=== PATIENT | male | born 1935 | race Caucasian/White ===

== ENCOUNTER → 2016-02-22 | Outpatient (REF) | payer MEDICARE, OTHER | LOC: M LAB REF 17:17 | PROVIDERS: ATTEND Internal Medicine Nephrology | DX: N17.9 Acute kidney failure, unspecified (principal); D72.829 Elevated white blood cell count, unspecified ==

== ENCOUNTER 2016-02-29 08:13 | Outpatient (CLI) | payer MEDICARE, OTHER ==
[~2016-02-29] VITALS: Ht 177.8 cm; Wt 141.4 kg
[2016-02-29] MEDS ORDERED: IRON SUCROSE 25 MG in NS 50 ML IV ONE (08:30)
[2016-02-29] MEDS ORDERED: IRON SUCROSE 475 MG in NS 250 ML IV ONE (09:30)
[2016-02-29] MEDS ORDERED: TRAZ50TA4 PO (09:58)
[2016-02-29] MEDS ORDERED: PARO10TA84 PO (09:59)
[2016-02-29] MEDS ORDERED: ZYLO300T4 PO (10:00)
[2016-02-29] MEDS ORDERED: AMLO5TAB2 PO (10:06)
[2016-02-29] MEDS ORDERED: PROS5TAB PO (16:23)
[2016-02-29] MEDS ORDERED: IRON1TAB PO (16:24)
[2016-02-29] MEDS ORDERED: TORS10TA3 PO (16:24)
[2016-02-29] MEDS ORDERED: ATOR1TAB19 PO (16:25)
[2016-02-29] MEDS ORDERED: ISOS30TAB PO (16:26)
[2016-02-29] MEDS ORDERED: METO5TA PO (16:26)
[2016-02-29] MEDS ORDERED: ASPI81TA85 PO (16:27)
[2016-02-29] MEDS ORDERED: STOO240C PO (16:28)
[2016-02-29] MEDS ORDERED: CARV12.5 PO (16:28)
[2016-02-29] MEDS ORDERED: K-TA10TA2 PO (16:28)
[2016-02-29] MEDS ORDERED: HUMA75VL SC (16:30)
[2016-02-29] MEDS ORDERED: GABA-279 PO (16:30)
[2016-02-29] MEDS ORDERED: ADVI200C5 PO (16:30)
[2016-02-29] MEDS ORDERED: COLC1TAB5 PO (16:33)
[2016-02-29] MEDS ORDERED: HUMA75VLDS SC (16:33)
== END 2016-02-29 13:00 | disposition home or self-care (01) ==
LOC: M INFU 08:13
PROVIDERS: ATTEND Internal Medicine Nephrology
DX: D50.9 Iron deficiency anemia, unspecified (principal); I10 Essential (primary) hypertension; R06.83 Snoring; G47.30 Sleep apnea, unspecified; E11.9 Type 2 diabetes mellitus without complications; M54.9 Dorsalgia, unspecified; R53.1 Weakness; Z79.4 Long term (current) use of insulin; Z87.891 Personal history of nicotine dependence; Z79.899 Other long term (current) drug therapy
CPT/HCPCS: 96365; 96366; J1756

== ENCOUNTER → 2016-06-05 | Outpatient (REF) | payer MEDICARE, OTHER ==
[~2016-06-05] MED LIST: ADVI200C5 PO; AMLO5TAB2 PO; ASPI81TA85 PO; ATOR1TAB19 PO; CARV12.5 PO; COLC1TAB5 PO; GABA-279 PO; HUMA75VL SC; HUMA75VLDS SC; IRON1TAB PO; ISOS30TAB PO; K-TA10TA2 PO; METO5TA PO; PARO10TA84 PO; PROS5TAB PO; STOO240C PO; TORS10TA3 PO; TRAZ50TA4 PO; ZYLO300T4 PO
[2016-06-05 19:32] LABS: REASON FOR REVIEW COMPREHENSIVE REVIEW
[2016-06-05 20:43] LABS: ERYTHROCYTE SEDIMENTATION RATE 48 mm/hr (0-20)
== END ==
LOC: M LAB REF 16:34
PROVIDERS: ATTEND Internal Medicine Medical Oncology
DX: D72.829 Elevated white blood cell count, unspecified (principal)

== ENCOUNTER → 2017-03-16 | Outpatient (REF) | payer MEDICARE, OTHER ==
[2017-03-16 14:07] LABS: FERRITIN 96 NG/ML (26-388); IRON (FE) 43 UG/DL (65-175); PERCENT SATURATION 15.5 % (19.7-50.0); TOTAL IRON BINDING CAPACITY 278 UG/DL (250-450)
[2017-03-16 14:28] LABS: FOLATE 10.2 NG/ML; VITAMIN B12 LEVEL 386 PG/ML
== END ==
LOC: M LAB REF 13:09
DX: D64.9 Anemia, unspecified (principal)
CPT/HCPCS: 82746

== ENCOUNTER → 2018-08-16 | Outpatient (REF) | payer MEDICARE ==
[~2018-08-16] MED LIST changes: -AMLO5TAB2 PO; +AMLO5TAB6 PO; +COLC1TAB14 PO; -COLC1TAB5 PO; +GABA-1171 PO; -GABA-279 PO; +PARO10TA3 PO; -PARO10TA84 PO; +STOO1CAP9 PO; -STOO240C PO; +TRAZ-252 PO; -TRAZ50TA4 PO; -ZYLO300T4 PO; +ZYLO300T6 PO
== END ==
LOC: M LAB REF 16:53
PROVIDERS: ATTEND Internal Medicine Nephrology
DX: N39.0 Urinary tract infection, site not specified (principal)

== ENCOUNTER 2019-06-29 11:47 | Inpatient (IN) | payer MEDICARE ==
[2019-06-29 15:15] VITALS: BP 137/61
[2019-06-29] MEDS ORDERED: MAALOX 30 ML SUSP *UDC PO PRN (15:45)
[2019-06-29] MEDS ORDERED: DEXTROSE 50% 50 ML SYRINGE IV PRN (15:45)
[2019-06-29] MEDS ORDERED: GLUCOSE 4GM CHEW TABLET PO PRN (15:45)
[2019-06-29] MEDS ORDERED: MOM 30ML SUSPENSION UDC PO PRN (15:45)
[2019-06-29] MEDS ORDERED: ACETAMINOPHEN TAB 650MG DOSE (2X325MG) PO PRN (15:45)
[2019-06-29] MEDS ORDERED: GLUCAGON INJ 1MG VIAL SC PRN (15:45)
--- NOTE | 2019-06-29 16:20 | HPEPDOC ---
[facility] Medical History & Physical Date of Admission June 29, 2019 Date of Service: June 29, [address] MIGUELINA GARVIN Attending Physician: LUZ VALENZUELA MD History and Physical CHIEF COMPLAINT: HISTORY OF PRESENT ILLNESS: PAST MEDICAL HISTORY: 1. . 2. . 3. . PAST SURGICAL HISTORY: 1. . 2. . 3. . SOCIAL HISTORY: Marital status: . Resides in: Children: Employment: Tobacco use: ETOH: Illicit drug use: Tattoos done unprofessionally: . IV drug use: Other relevant social factors: FAMILY HISTORY: Father: Mother: Siblings: Children: Hereditary Diseases: Unexpected deaths due to medical reasons: ALLERGIES: Please see below. REVIEW OF SYSTEMS: CONSTITUTIONAL: . HEENT: . CARDIOVASCULAR: . RESPIRATORY: . GASTROINTESTINAL: . GENITOURINARY: . SKIN: . MUSCULOSKELETAL: . NEUROLOGICAL: . PSYCHIATRIC: . ENDOCRINE: . HEMATOLOGIC/LYMPHATIC: . HOME MEDICATIONS: Please see below. PHYSICAL EXAMINATION: VITAL SIGNS: Temperature , pulse , respiratory rate , blood pressure , pulse oximetry % on room air. GENERAL APPEARANCE: . HEENT: . CARDIOVASCULAR: . LUNGS: . ABDOMEN: . MUSCULOSKELETAL: . EXTREMITIES: . NEUROLOGICAL: . PSYCHIATRIC: . LABORATORY DATA: See below. IMAGING: MICROBIOLOGY: Please see below. ASSESSMENT: . . PLAN: 1. . Vital Signs Vital Signs Date Time Temp Pulse Resp B/P (MAP) Pulse Ox O2 Delivery O2 Flow Rate FiO2 06/29/19 15:15 96.9 75 18 137/61 (86) 95 Room Air Laboratory Data Labs 24H Laboratory Tests 06/29/19 16:25 Microbiology Microbiology 06/29/19 Blood Culture, Received Pending 06/29/19 Blood Culture, Received Pending Home Medications Scheduled Allopurinol (Zyloprim) 300 Mg Tab, 300 MG PO DAILY Amlodipine Besylate (Amlodipine Besylate) 5 Mg Tab, 5 MG PO DAILY Aspirin (Aspir 81) 81 Mg Tab, 81 MG PO DAILY Atorvastatin Calcium (Atorvastatin Calcium) 10 Mg Tab, 10 MG PO DAILY Betamethasone Dipropionate (Betamethasone Dipropionate) 0.05% Cream..g., 1 APLCT TOP BID apply to affected area(s) Carvedilol (Carvedilol) 6.25 Mg Tablet, 6.25 MG PO BID Clotrimazole (Lotrimin AF) 30 Gm Cream..g., 1 APLCT TOP TID apply to inguinal regions Docusate Sodium (Dok) 100 Mg Tablet, 100 MG PO BID Ferrous Sulfate (Ferrous Sulfate) 325 Mg Tablet.dr, 325 MG PO DAILY Finasteride (Proscar) 5 Mg Tab, 5 MG PO DAILY Gabapentin (Gabapentin) 100 Mg Cap, 200 MG PO DAILY Insulin Detemir (Levemir) 100 Unit/1 Ml Vial, 100 UNITS SC BID Metolazone (Metolazone) 5 Mg Tab, 5 MG PO ASDIRECTED sunday and sunday Paroxetine HCl (Paroxetine) 10 Mg Tab, 10 MG PO DAILY Potassium Chloride (Potassium Chloride) 20 Meq Tablet.er, 20 MEQ PO DAILY Sulfamethoxazole/Trimethoprim (Bactrim Ds Tablet) 1 Each Tablet, 1 TAB PO BID started 06/28/19 stop 06/30/19 Torsemide (Torsemide) 10 Mg Tab, 20 MG PO DAILY Trazodone HCl (Trazodone HCl) 50 Mg Tab, 50 MG PO QHS Scheduled PRN Hydrocodone/Acetaminophen (Hydrocodone-Acetamin 5-325 mg) 1 Each Tablet, 1 TAB PO Q6H PRN for PAIN started 06/28/19 stop 07/04/19 Allergies Coded Allergies: No Known Allergies (Verified , 08/11/02) A-FIB/CHADSVASC A-FIB History Current/History of A-Fib/PAF?: No Current PO Anticoag Therapy: No Age/Risk Factor Scoring CHADSVASC: CHADSVASC Response (Comments) Value Age Risk Factor Age >/= 75 years old 2 Gender Risk Factor Male 0 Hx of CHF No 0 Hx of HTN Yes 1 Hx of Stroke/TIA/or VTE No 0 Hx of Diabetes Yes 1 Hx of Vascular Disease No 0 Total 4 Treatment Treatment ordered: NONE Reason Anticoagulant not given: Not indicated/[id number] Objective Physical Examination Examination GENERAL APPEARANCE:[Patient seen, laying in bed, awake, alert, and oriented. Comfortable, in no acute distress]. SKIN: [Warm and moist]. HEENT: [Normocephalic, atraumatic. [place] palpebral conjunctiva, anicteric sclerae. Lips and mucosa appear moist]. NECK: [Supple, no thyromegaly. No obvious jugular venous distention]. LUNGS: [Clear to auscultation bilaterally. No wheezing appreciated]. HEART: [No chest wall abnormalities. Regular rate and rhythm with no murmurs appreciated]. ABDOMEN: Abdomen is , soft, . [No hepatosplenomegaly. No umbilical or groin herniations, nondistended. No noticeable rebound or guarding. No grimacing with palpation. No rebound tenderness. No masses appreciated]. EXTREMITIES: [Extremities have no deformities. No edema identified]. Vital Signs Vital Signs Date Time Temp Pulse Resp B/P (MAP) Pulse Ox O2 Delivery O2 Flow Rate FiO2 06/29/19 15:15 96.9 75 18 137/61 (86) 95 Room Air Physical Examination Physical Examination GENERAL: Alert and oriented times three. BREAST: . ABDOMEN: Gravid and non-tender to touch. FETUS: Is vertex (VTX) by sterile vaginal examination (SVE), fetus is vertex (VTX) by [place]. HEART RATE: Regular rate and rhythm. LUNGS: Clear to auscultation (CTA). EXTREMITIES: No edema. No clonus. Deep tendon reflexes (DTRs) + . Vital Signs/I&O Vital Signs Date Time Temp Pulse Resp B/P (MAP) Pulse Ox O2 Delivery O2 Flow Rate FiO2 06/29/19 15:15 96.9 75 18 137/61 (86) 95 Room Air Target Goal Assess presence or absence of depression using a valid screening tool (1). Maximize coping skills (2). Positive support system (2). Subjective General Date/Time Seen The patient was seen on 06/29/19 at 16:20. Subject Chief Complaint/History The patient is a 84-year-old male admitted with a reason for visit of Acute Kidney Injury & Chronic Kidney Disease. Current Medications Current Medications Current Medications Medications (Trade) Dose Ordered Sig/Estrella Route PRN Reason Start Time Stop Time Status Last Admin Dose Admin Acetaminophen (Tylenol Tab) 650 mg Q4H PRN PO PAIN OR FEVER 06/29/19 15:45 UNV Al Hydrox/Mg Hydrox/Simethicone (Mylanta) 30 ml DAILY PRN PO DYSPEPSIA 06/29/19 15:45 UNV Dextrose (Dextrose 50%) 25 ml ASDIRECTED PRN IV SEE LABEL COMMENTS 06/29/19 15:45 UNV Docusate Sodium (Colace) 100 mg BID PO 06/29/19 21:00 UNV Glucagon (Glucagon) 1 mg ASDIRECTED PRN SC SEE LABEL COMMENTS 06/29/19 15:45 UNV Glucose (Glucose) 16 GM ASDIRECTED PRN PO SEE LABEL COMMENTS 06/29/19 15:45 UNV Insulin Human Lispro (HumaLOG INSULIN) See Protocol Table AC SC 06/29/19 17:30 UNV Insulin Human Lispro (HumaLOG INSULIN) See Protocol Table QHS SC 06/29/19 21:00 UNV Magnesium Hydroxide (Milk Of Magnesia) 30 ml DAILY PRN PO CONSTIPATION 06/29/19 15:45 UNV VS, I&O, 24H, Fishbone Vital Signs/I&O GI RAMIREZ June 29, 2019 16:20
[2019-06-29 16:37] LABS: BASO # 0.1 10^3/uL (0.0-0.2); BASO % 0.3 % (0.0-1.0); EOS # 1.3 10^3/uL (0.0-0.5); EOS % 6.5 % (0.0-3.0); HEMOGLOBIN 11.1 g/dl (13.5-17.5); LYMPH # 1.8 10^3/uL (1.5-5.0); LYMPH % 8.6 % (24.0-44.0); MEAN CORPUSCULAR HEMOGLOBIN 30.2 pg (27.0-33.0); MEAN CORPUSCULAR HGB CONC 31.7 g/dl (32.0-36.5); MEAN CORPUSCULAR VOLUME 95.4 fl (80.0-96.0); MONO % 4.7 % (0.0-5.0); NEUTROPHILS # 16.3 10^3/uL (1.5-8.5); PLATELET COUNT, AUTOMATED 163 10^3/uL (150-450); RED BLOOD COUNT 3.67 10^6/uL (4.30-6.10); WHITE BLOOD COUNT 20.6 10^3/uL (4.0-10.0)
[2019-06-29 16:47] LABS: INR 1.15; PROTHROMBIN TIME 14.4 SECONDS (11.8-14.0)
--- NOTE | 2019-06-29 17:01 | ECGEPIP ---
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
[2019-06-29 17:08] LABS: ALBUMIN 2.3 GM/DL (3.2-5.2); BILIRUBIN,TOTAL 0.2 MG/DL (0.2-1.0); CALCIUM LEVEL 7.7 MG/DL (8.8-10.2); CREATININE FOR GFR 3.56 MG/DL (0.70-1.30); GLOMERULAR FILTRATION RATE 17.6 (>35); POTASSIUM SERUM 4.9 MEQ/L (3.5-5.1); TOTAL PROTEIN 5.3 GM/DL (6.4-8.2)
[2019-06-29] MEDS ORDERED: FLEET ENEMA PR PRN (17:30)
[2019-06-29] MEDS ORDERED: COLCHICINE 0.6 MG TAB PO SCH (17:30)
[2019-06-29] MEDS ORDERED: MORPHINE 2 MG/ML 1ML VIAL (J2270) IV ONE (17:30)
--- NOTE | 2019-06-29 18:03 | REPVR ---
PROCEDURE INFORMATION: Exam: CT Right Lower Extremity Without Contrast, Hip Exam date and time: 06/29/2019 5:50 PM Age: 84 years old Clinical indication: Pain; Hip; Right; Additional info: R hip pain TECHNIQUE: Imaging protocol: CT of the Right lower extremity without contrast was performed. Exam focused on the hip. Radiation optimization: All CT scans at this facility use at least one of these dose optimization techniques: automated exposure control; mA and/or kV adjustment per patient size (includes targeted exams where dose is matched to clinical indication); or iterative reconstruction. COMPARISON: No relevant prior studies available. FINDINGS: Acute impacted but essentially nondisplaced transverse subcapital right femur neck fracture with varus and apex anterior angulation. Underlying skeletal demineralization. No apparent osseous lesion. No involvement of the greater or lesser trochanter. No articular surface involvement of the femoral head Acetabulum demonstrates no acute fracture. Right obturator ring, right SI joint and symphysis appear appropriately aligned. Mild age-appropriate right hip joint loss and degenerative osteophytes No large soft tissue hematoma or evidence of an open injury. IMPRESSION: Acute transverse subcapital right femur neck fracture with mild varus and apex anterior angulation but minimal displacement. Electronically signed by: Ramon Buchanan On 06/29/2019 18:02:50 PM
[2019-06-29] MEDS: HumaLOG INSULIN (NovoLOG) PER UNIT SC SCH ×2 (18:06→20:32)
[2019-06-29] MEDS: NS 1,000 ML IV SCH (18:07)
[2019-06-29] MEDS ORDERED: CARV6.25 PO (18:31)
[2019-06-29] MEDS ORDERED: POTA1TAB14 PO (18:31)
[2019-06-29] MEDS ORDERED: BACT800T5 PO (18:31)
[2019-06-29] MEDS ORDERED: INSUDET SC (18:31)
[2019-06-29] MEDS ORDERED: HYDR-3713 PO (18:31)
[2019-06-29] MEDS ORDERED: DOK100TA PO (18:31)
[2019-06-29] MEDS ORDERED: FERR325T3 PO (18:34)
[2019-06-29] MEDS ORDERED: BETA0.0543 TOP (18:44)
[2019-06-29] MEDS ORDERED: LOTR1CRE12 TOP (18:44)
[2019-06-29] MEDS ORDERED: NS 1,000 ML IV ONE (19:00)
--- NOTE | 2019-06-29 19:10 | HPEPDOC ---
General Date of Admission June 29, 2019 at 15:03 Date of Service: June 29, 2019 Primary Care Physician: Nitin Other Providers DR. MIGUELINA MAHONEY-Attending DR. MEDINA-Orthopedic surgeon DR. GARVIN- Urology Attending Physician: LUZ VALENZUELA MD Chief Complaint 84 year old elderly male with signifcant PMH of admitted for worsening CKD after suffering from mechanical fall on 06/27/19, right hip pain, lower back pain, right knee pain with movement and urinary retention. He had Johnson catheter placed at outside facility that was reported traumatic and he started experiencing pawel red bleeding via his Johnson catheter as of yesterday evening. In reviewing his admission labs his creatinine has increased to 3.56 with GFR 17.6; WBC is 20.6 and absolute neutrophil count of 79.0 with left shift. Source: Patient, Old records Exam Limitations: Other (Pain) Timing/Duration: Day(s) (06/27/19) Severity: Severe Associated Symptoms: Mechanical fall, Other (uncontrollable pain back, hip, knee, leg swelling) History of Present Illness 84 year old elderly male direct admit transfer from [facility] with complaints of worsening back, right hip pain radiating to his right knee that is worse with movement since his traumatic fall on 06/27/2019 and increasing creatinine, oliguria resulting in a Johnson catheter being placed on 06/27/19 , then pawel hematuria on 06/28/19 with his Juke Box Mechanic notified. Patients' Juke Box Mechanic Dr. Koo requested for patient to be admitted to [facility] for ongoing evaluation of his rapidly declining kidney function as his creatinine was 1.6 on 06/27/19 and is now 3.56 with today admission laboratory workup. 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 His Johnson catheter placed at outside facility that was reported traumatic and he started experiencing pawel red bleeding via his Johnson catheter as of yesterday evening. In reviewing his admission labs his creatinine has increased GFR 17.6; WBC is 20.6 and absolute neutrophil count of 79.0 with left shift. Patient admitted to Inpatient as he will be more than minimal 2 midnight stays due to worsening CKD stage 3; CT of Right Hip revealed acute transverse subcapital right femur neck fracture with mild varus and apex anterior a ngulation with displacement; and possible cystoscopy with Urology consulted due to gross pawel hematuria. Home Medications Scheduled Allopurinol (Zyloprim) 300 Mg Tab, 300 MG PO DAILY, (Reported) Amlodipine Besylate (Amlodipine Besylate) 5 Mg Tab, 5 MG PO DAILY, (Reported) Aspirin (Aspir 81) 81 Mg Tab, 81 MG PO DAILY, (Reported) Atorvastatin Calcium (Atorvastatin Calcium) 10 Mg Tab, 10 MG PO DAILY, (Reported) Betamethasone Dipropionate (Betamethasone Dipropionate) 0.05% Cream..g., 1 APLCT TOP BID, (Reported) apply to affected area(s) Carvedilol (Carvedilol) 6.25 Mg Tablet, 6.25 MG PO BID, (Reported) Clotrimazole (Lotrimin AF) 30 Gm Cream..g., 1 APLCT TOP TID, (Reported) apply to inguinal regions Docusate Sodium (Dok) 100 Mg Tablet, 100 MG PO BID, (Reported) Ferrous Sulfate (Ferrous Sulfate) 325 Mg Tablet.dr, 325 MG PO DAILY, (Reported) Finasteride (Proscar) 5 Mg Tab, 5 MG PO DAILY, (Reported) Gabapentin (Gabapentin) 100 Mg Cap, 200 MG PO DAILY, (Reported) Insulin Detemir (Levemir) 100 Unit/1 Ml Vial, 100 UNITS SC BID, (Reported) Metolazone (Metolazone) 5 Mg Tab, 5 MG PO ASDIRECTED, (Reported) sunday and sunday Paroxetine HCl (Paroxetine) 10 Mg Tab, 10 MG PO DAILY, (Reported) Potassium Chloride (Potassium Chloride) 20 Meq Tablet.er, 20 MEQ PO DAILY, (Reported) Sulfamethoxazole/Trimethoprim (Bactrim Ds Tablet) 1 Each Tablet, 1 TAB PO BID, (Reported) started 06/28/19 stop 06/30/19 Torsemide (Torsemide) 10 Mg Tab, 20 MG PO DAILY, (Reported) Trazodone HCl (Trazodone HCl) 50 Mg Tab, 50 MG PO QHS, (Reported) Scheduled PRN Hydrocodone/Acetaminophen (Hydrocodone-Acetamin 5-325 mg) 1 Each Tablet, 1 TAB PO Q6H PRN for PAIN, (Reported) started 06/28/19 stop 07/04/19 Allergies Coded Allergies: No Known Allergies (Verified , 08/11/02) Past Medical History Medical History Chronic leukocytosis; Diabetes mellitus Insulin dependent; Surgical History Bilateral cataract removed Right knee with cartilage removed Artificial right shoulder Family History Significant Family History: Hypertension Social History * Smoker: current smoker, cigarettes Alcohol: Denies Drugs: prescription drugs Recent Travel/Sick Contacts: Denies: Recent travel, Recent sick contacts Psychosocial History: Fritz SI and HI A-FIB/CHADSVASC A-FIB History Current/History of A-Fib/PAF?: No Current PO Anticoag Therapy: No Age/Risk Factor Scoring CHADSVASC: CHADSVASC Response (Comments) Value Age Risk Factor Age >/= 75 years old 2 Gender Risk Factor Male 0 Hx of CHF Yes 1 Hx of HTN Yes 1 Hx of Stroke/TIA/or VTE No 0 Hx of Diabetes Yes 1 Hx of Vascular Disease No 0 Total 5 Treatment Treatment ordered: NONE Reason Anticoagulant not given: Current bleeding Review of Systems Constitutional: Reports: Weakness, Fatigue Eyes: Denies: Pain, Vision change, Conjunctivae inflammation, Eyelid inflammation, Redness, Other ENT: Denies: Head Aches, Ear Pain, Dysphagia, Sinus Congestion, Post Nasal Drip, Sore Throat, Epistaxis, Other Symptoms Skin: Reports: Other (redness bilateral lower shins) Pulmonary: Denies: Dyspnea, Cough, Pleuritic Chest Pain, Other Symptoms Cardiovascular: Reports: Edema (bilateral lower legs (new)); Denies: Chest Pain, Palpitations, Orthopnea, Paroxysmal Noc. Dyspnea, Lt Headedness, Other Symptoms Gastrointestinal: Reports: Constipation Genitourinary: Reports: Hematuria (started yesterday in johnson catheter), Retention (Johnson catheter placed at [facility]) Hematologic: Reports: Bruising, Bleeding Excessively Endocrine: Denies: Polydipsia, Polyphagia, Polyuria, Heat Intolerance, Cold Intolerance, Other Endocrine Sx Musculoskeletal: Reports: Back Pain, Leg Pain, Joint Pain, Other Symptoms (hip pain right, right knee pain) Neurological: Reports: Weakness Psych: Reports: Anxiety Physical Examination General Exam: Positive: Alert, Cooperative, Severe Distress (with movement) Eye Exam: Positive: PERRLA, Conjunctiva & lids normal ENT Exam: Positive: Atraumatic, Mucous membr. moist/pink, Pharynx Normal Neck Exam: Positive: Supple, +2 carotid pulse wo bruit Chest Exam: Positive: Diminished Heart Exam: Positive: Rate Normal, Normal S1, Normal S2 Abdomen Exam: Positive: Normal bowel sounds, Soft Extremity Exam: Positive: Edema (non-pitting +2 BLE), Tenderness, Swelling (Erythema BLE shins), Other (Severe pain with movment back and right hip down to right knee) Skin Exam: Positive: Breakdown (coccyx), Other skin issue (Erythema) Neuro Exam: Positive: Normal Speech, Cranial Nerves 3-12 NL (grossly intact) Psych Exam: Positive: Mental status NL, Oriented x 3 Vital Signs Vital Signs Date Time Temp Pulse Resp B/P (MAP) Pulse Ox O2 Delivery O2 Flow Rate FiO2 06/29/19 18:07 20 Room Air 06/29/19 15:15 96.9 75 137/61 (86) 95 Laboratory Data Labs 24H Laboratory Tests 2 06/29/19 16:25: Immature Granulocyte % (Auto) 0.9, Neutrophils (%) (Auto) 79.0H, Lymphocytes (%) (Auto) 8.6L, Monocytes (%) (Auto) 4.7, Eosinophils (%) (Auto) 6.5H, Basophils (%) (Auto) 0.3, Neutrophils # (Auto) 16.3H, Lymphocytes # (Auto) 1.8, Monocytes # (Auto) 1.0H, Eosinophils # (Auto) 1.3H, Basophils # (Auto) 0.1, Nucleated Red Blood Cells % (auto) 0.0, Prothrombin Time 14.4H, Prothromb Time International Ratio 1.15, Anion Gap 11, Glomerular Filtration Rate 17.6L, Lactic Acid Level 1.7, Calcium Level 7.7L, Total Bilirubin 0.2, Aspartate Amino Transf (AST/SGOT) 15, Alanine Aminotransferase (ALT/SGPT) 14, Alkaline Phosphatase 84, Total Protein 5.3L, Albumin 2.3L, Albumin/Globulin Ratio 0.8 06/29/19 17:32: Bedside Glucose (Misc Panel) 142H CBC/BMP Laboratory Tests 06/29/19 16:25 Microbiology Microbiology 06/29/19 Blood Culture, Received Pending 06/29/19 Blood Culture, Received Pending Problems (1) ANICETO (acute kidney injury) Problem Text: 84 year old elderly male admitted for worsening CKD after suffering from mechanical fall on 06/27/19, right hip pain, lower back pain, right knee pain with movement and urinary retention. He had Johnson catheter placed at outside facility that was reported traumatic and he started experiencing pawel red bleeding via his Johnson catheter as of yesterday evening. In reviewing his admission labs his creatinine has increased to 3.56 with GFR 17.6; WBC is 20.6 and absolute neutrophil count of 79.0 with left shift. ANICETO with gross hematuria, oliguria and CKD stage 3-Acute on Chronic -IVF NS @ 80 cc hr -Nephrology consulted Alie Mayorga (spoke with him and he will see patient later today) -Urology consulted Dr. Garvin (spoke with him, possibly Cystoscopy in the AM; made patient NPO after Midnight)\ -Maintain Johnson Catheter, ordered UA with C/S as her was admitted with Johnson -Monitor CBC with Differential (q 4-6 hours)-history of anemia of chronic disease -Renal US Acute transverse subcapital right femur neck fracture with mild varus and apex anterior angulation but minimal displacement s/p fall on 06/27/19. -Bedrest -PT/OT consult -Orthopedic surgery consult-Dr. Medina (Dr. Alison Mahoney spoke with him) -Pain management: Morphine 1 mg q 3 hours for pain 4-10 and or breakthrough pain; Ultram 50 mg po q 4-6 hours for pain Leukocytosis -Acute on Chronic - Possible 2/2 UTI? 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- Chronic -POC Glucose q 4 hours while NPO -Sliding scale insulin q 4 hours -Initiate hypoglycemia protocol per [facility] hospital policy -Continue taking Gabapentin 100 mg po TID -Diabetic diet when he starts to eat then glucose checks with be the standard AC & HS Hyperlipidemia-Chronic -Fasting lipid panel in AM -Continue Statin Atorvastatin 10 mg po QHS Gout-Chronic -Continue Allopurinol 300 mg po daily -Hold Colchicine Anemia (Iron deficiency) of Chronic Disease-Chronic -Ferritin, Transferrin, level in AM -Hold Iron 65 mg po daily; will switch to ferrous sulfate Depression/Anxiety-Chronic -Continue Paxil 10 mg po daily Insomnia-Chronic -Continue Trazodone BBPV-Chronic -Continue Proscar 5 mg po daily FULL CODE PPI: Not needed; Mylanta PRN DVT Prophylaxis: SCD's BLE with JOSE L Pickens (re: Hematuria) Discharge: Pending Clinical course Plan / VTE VTE Prophylaxis Ordered?: Yes VTE Exclusion Mechanical Proph: N/A:VTE Prophy Ordered VTE Exclusion Pharmacological: Active Bleeding Plan / Urinary Catheter Urinary Catheter: Other Catheter: (on admission) Plan IVF: Initiate Diet: Make NPO (after midnight) Advanced Directives: Health Care Proxy (HCP) (Bakari fuller [phone]) Attending Note Attending Note - Patient was seen and examined at the bedside - Patient was transferred from [facility] after a fall at home - Reported worsening R hip pain - Labs had revealed worsening renal function on chronic kidney disease - XR initially done at [facility] were negative for fracture - R hip CT scan had revealed an acute fracture of the hip; orthopedic surgery was called on consultation; Case discussed with Dr. Medina - Worsening renal function; c/w IV fluid hydration; Nephrology, Dr. Koo has seen and evaluated patient - Hematuria; possibly 2/2 traumatic johnson insertion; however may require intervention prior to Hip intervention as anticoagulation for DVT prophylaxis will be required; Dr. Garvin has been consulted - plans for likely cystoscopy tomorrow AM - Will c/w pain control until patient can be medically cleared for surgical intervention of the R hip GI RAMIREZ June 29, 2019 19:10 MIGUELINA MAHONEY MD June 29, 2019 21:40
[2019-06-29 20:00] VITALS: BP 131/62; O2SAT 93
[2019-06-29] MEDS: DOCUSATE SODIUM 100 MG CAP PO SCH (20:30)
[2019-06-29] MEDS: GABAPENTIN 100 MG CAP PO SCH (20:30)
[2019-06-29] MEDS: cefTRIAXone SOD 1 GM in D5W MINI-BAG PLUS 50 ML IV SCH (20:30)
[2019-06-29] MEDS: ATORVASTATIN 10 MG TAB PO SCH (20:30)
[2019-06-29] MEDS: traZODone 50 MG TAB PO SCH (20:30)
[2019-06-29] MEDS: traMADol 50 MG TAB PO PRN (20:31)
[2019-06-29 20:42] LABS: BASO # 0.1 10^3/uL (0.0-0.2); BASO % 0.4 % (0.0-1.0); EOS # 1.3 10^3/uL (0.0-0.5); EOS % 6.8 % (0.0-3.0); HEMATOCRIT 34.3 % (42.0-52.0); HEMOGLOBIN 10.9 g/dl (13.5-17.5); LYMPH # 1.5 10^3/uL (1.5-5.0); LYMPH % 7.8 % (24.0-44.0); MEAN CORPUSCULAR HEMOGLOBIN 30.4 pg (27.0-33.0); MEAN CORPUSCULAR HGB CONC 31.8 g/dl (32.0-36.5); MEAN CORPUSCULAR VOLUME 95.5 fl (80.0-96.0); MONO % 5.2 % (0.0-5.0); NEUTROPHILS # 15.4 10^3/uL (1.5-8.5); NEUTROPHILS % 79.2 % (36.0-66.0); PLATELET COUNT, AUTOMATED 162 10^3/uL (150-450); RED BLOOD COUNT 3.59 10^6/uL (4.30-6.10); WHITE BLOOD COUNT 19.4 10^3/uL (4.0-10.0)
[2019-06-29] MEDS ORDERED: CARVedilol 12.5 MG TAB PO SCH (21:00)
[2019-06-29] MEDS ORDERED: FERROUS SULFATE 325MG TAB PO SCH (21:00)
[2019-06-29] MEDS: MORPHINE 2 MG/ML 1ML VIAL (J2270) IV PRN (23:50)
[2019-06-30] VITALS (14 sets, daily range): BP systolic 118–158; BP diastolic 55–78; O2SAT 93–98
[2019-06-30 00:24] LABS: BASO # 0.1 10^3/uL (0.0-0.2); BASO % 0.4 % (0.0-1.0); EOS # 1.2 10^3/uL (0.0-0.5); EOS % 6.1 % (0.0-3.0); HEMATOCRIT 35.6 % (42.0-52.0); HEMOGLOBIN 11.2 g/dl (13.5-17.5); LYMPH # 1.7 10^3/uL (1.5-5.0); LYMPH % 8.4 % (24.0-44.0); MEAN CORPUSCULAR HEMOGLOBIN 30.4 pg (27.0-33.0); MEAN CORPUSCULAR HGB CONC 31.5 g/dl (32.0-36.5); MEAN CORPUSCULAR VOLUME 96.5 fl (80.0-96.0); MONO # 0.9 10^3/uL (0.0-0.8); MONO % 4.7 % (0.0-5.0); NEUTROPHILS % 79.6 % (36.0-66.0); RED BLOOD COUNT 3.69 10^6/uL (4.30-6.10); WHITE BLOOD COUNT 20.1 10^3/uL (4.0-10.0)
[2019-06-30] MEDS: MORPHINE 2 MG/ML 1ML VIAL (J2270) IV PRN ×2 (03:48→16:01)
[2019-06-30 04:40] LABS: BASO # 0.1 10^3/uL (0.0-0.2); BASO % 0.4 % (0.0-1.0); EOS # 1.1 10^3/uL (0.0-0.5); EOS % 5.8 % (0.0-3.0); HEMATOCRIT 33.4 % (42.0-52.0); HEMOGLOBIN 10.8 g/dl (13.5-17.5); LYMPH # 1.7 10^3/uL (1.5-5.0); LYMPH % 8.9 % (24.0-44.0); MEAN CORPUSCULAR HEMOGLOBIN 30.9 pg (27.0-33.0); MEAN CORPUSCULAR HGB CONC 32.3 g/dl (32.0-36.5); MEAN CORPUSCULAR VOLUME 95.4 fl (80.0-96.0); NEUTROPHILS # 15.1 10^3/uL (1.5-8.5); NEUTROPHILS % 79.2 % (36.0-66.0); PLATELET COUNT, AUTOMATED 153 10^3/uL (150-450)
[2019-06-30 05:06] LABS: CALCIUM LEVEL 7.4 MG/DL (8.8-10.2); CREATININE FOR GFR 3.5 MG/DL (0.70-1.30); GLOMERULAR FILTRATION RATE 17.9 (>35); POTASSIUM SERUM 5.3 MEQ/L (3.5-5.1)
[2019-06-30] MEDS: NS 1,000 ML IV SCH (06:45)
[2019-06-30] MEDS: HumaLOG INSULIN (NovoLOG) PER UNIT SC SCH ×4 (07:30→20:46)
[2019-06-30] MEDS: FINASTERIDE 5 MG TAB PO SCH (07:48)
[2019-06-30] MEDS: allopurinoL 300 MG TAB PO SCH (07:48)
[2019-06-30] MEDS: DOCUSATE SODIUM 100 MG CAP PO SCH ×2 (07:48→20:41)
[2019-06-30] MEDS: GABAPENTIN 100 MG CAP PO SCH ×3 (07:48→20:41)
[2019-06-30] MEDS: PARoxetine 10MG TABLET PO SCH (07:48)
[2019-06-30] MEDS: CARVedilol 12.5 MG TAB PO SCH ×2 (07:49→20:40)
[2019-06-30 08:08] LABS: BASO # 0.1 10^3/uL (0.0-0.2); BASO % 0.6 % (0.0-1.0); EOS # 1.2 10^3/uL (0.0-0.5); EOS % 5.9 % (0.0-3.0); HEMATOCRIT 34.9 % (42.0-52.0); HEMOGLOBIN 11.4 g/dl (13.5-17.5); LYMPH # 1.8 10^3/uL (1.5-5.0); LYMPH % 9.2 % (24.0-44.0); MEAN CORPUSCULAR HEMOGLOBIN 31.3 pg (27.0-33.0); MEAN CORPUSCULAR HGB CONC 32.7 g/dl (32.0-36.5); MEAN CORPUSCULAR VOLUME 95.9 fl (80.0-96.0); MONO % 5.1 % (0.0-5.0); NEUTROPHILS # 15.7 10^3/uL (1.5-8.5); NEUTROPHILS % 78.5 % (36.0-66.0); PLATELET COUNT, AUTOMATED 180 10^3/uL (150-450); RED BLOOD COUNT 3.64 10^6/uL (4.30-6.10)
[2019-06-30] MEDS ORDERED: ISOSORBIDE DIN. (ISORDIL) 30 MG TAB PO SCH (09:00)
[2019-06-30] MEDS ORDERED: amLODIPine 5 MG TAB PO SCH (09:00)
[2019-06-30] MEDS ORDERED: D5W/0.45% SODIUM CHLORIDE 1,000 ML IV SCH (10:45)
--- NOTE | 2019-06-30 10:50 | CR ---
DATE OF CONSULTATION: 06/29/2019 REQUESTING PHYSICIAN: Dr. Giovanni Mahoney CONSULTING PHYSICIAN: Dr. Koo REASON FOR CONSULTATION: Management of acute kidney injury superimposed on chronic kidney disease. CHIEF COMPLAINT: Patient was a transfer from outside hospital for higher level of care because of her worsening renal failure and hematuria. HISTORY OF PRESENT ILLNESS: Mr. Raphael Green is an 84-year-old male with past medical history of chronic kidney disease, stage III, best baseline creatinine of 1.6 as of last month. He is well known to myself. He follows up with me in nephrology clinic. He has history of hypertension, chronic lower extremity edema, and diabetes mellitus, type 2, insulin dependent, multiple other comorbidities as mentioned below. He had a mechanical fall on 06/27/2019, and after that he had right hip pain. He was initially admitted at [facility]. He had worsening renal failure. Creatinine bumped up from 1.6 to 3.5 during the admission because of Merida catheter placement, which was complicated by pawel hematuria. The patient was discussed with myself by the hospitalist at [facility] and decision was made to transfer the patient to [facility] for higher level of care. On arrival, patient got further imaging done including the CAT scan of the right hip, which showed transverse subcapital right femoral neck fracture. The patient reports that he is feeling very dry and dehydrated and he also complains of significant amount of pain in the right hip. Labs done on arrival showed the patient was still in renal failure with a creatinine of 3.56 on arrival. PAST MEDICAL HISTORY: Past medical history of chronic kidney disease, stage III, with baseline creatinine of 1.6, chronic gout secondary to chronic kidney disease, hypertension, diabetes mellitus, type 2, insulin dependent, chronic persistent leukocytosis, chronic lower extremity edema, hyperlipidemia. PAST SURGICAL HISTORY: The patient has a history of bilateral cataract surgery, right knee cartilage surgery, and artifical right shoulder. ALLERGIES: NO KNOWN DRUG ALLERGIES. FAMILY HISTORY: No significant family history of end-stage renal disease requiring hemodialysis. SOCIAL HISTORY: The patient lives at home. Denies any smoking, illicit drug abuse, or alcohol abuse. REVIEW OF SYSTEMS Constitutional: He denies any fevers or chills. Eyes: He denies any blurry vision or double vision. ENT: Denies any dysphagia. Cardiovascular: Denies any chest pain or shortness of breath. Respiratory: Denies any cough or dyspnea. Gastrointestinal (GI); Denies any nausea or vomiting. Genitourinary: He has an indwelling Merida catheter and reports hematuria. Musculoskeletal: He reports severe right hip pain and decreased range of movement of the right leg after a fall. Skin: He denies any rashes or ulcers. Central nervous system (BEFORE SCHOOL): He denies any strokes or seizures. He does report dizziness at home that is why he fell at home. Endocrine: He reports diabetes mellitus, type 2. All other review of system is negative. PHYSICAL EXAMINATION: General: The patient is awake, alert, oriented times three, laying in bed in moderate painful distress. Vital Signs: Temperature is 97.5 degrees Fahrenheit. Blood pressure 131/62. Pulse is 66. Respiratory rate of 16. Saturating 97% on room air. Head/Neck Exam: Extraocular muscles intact. Pupils equally round and reactive to light. Mucous membranes are moist. Neck is supple. There is no significant jugular venous distention (JVD). Cardiovascular: S1 and S2, regular rate. 1+ edema on the bilateral lower extremities. Respiratory: Chest is clear to auscultation bilaterally. Bilateral equal air entry. No rales or rhonchi. Abdomen: Soft. Positive bowel sounds. Mildly tender to deep palpation in the suprapubic region. He has fungal rash in skin folds beneath the abdominal pannus. Genitourinary: He has an indwelling Merida catheter and there is pawel hematuria in the in the bag. Musculoskeletal: Decreased range of movement of the right hip. There is tenderness of the right hip. Otherwise, no clubbing or cyanosis. BEFORE SCHOOL: No focal deficits. Power 5/5 in upper extremities. LABORATORY REVIEW: CBC showed WBC of 19.4, hemoglobin 10.9, platelets of 162. BMP showed sodium 136, potassium 4.9, chloride 102, bicarbonate 23, BUN 69, creatinine is 3.5. Calcium 7.7. Albumin is 2.3. IMAGING: A CAT scan of the right hip was done, which showed acute transverse subcapital right femoral neck fracture. CURRENT INPATIENT MEDICATIONS: The patient is getting ceftriaxone 1 gram IV daily. He was started on normal saline at 80 mL/h. He is getting allopurinol 300 mg by mouth daily. Mylanta as needed. The patient was getting amlodipine 5 mg daily, which I have stopped at this time. Atorvastatin 10 mg daily. He is on Coreg 12.5 mg by mouth twice a day. I am going to decrease the dose to 6.25 mg by mouth twice a day, which is his dose according to clinic records. He is on Colace 100 mg by mouth twice a day. The patient is getting iron tablets 325 mg by mouth twice a day, which I am stopping for now. He is on finasteride 5 mg by mouth daily, gabapentin 100 mg by mouth three times a day, insulin sliding scale, isosorbide 30 mg by mouth daily, which was stopped. Milk of Magnesia as needed, morphine as needed for pain, Paxil 10 mg mouth daily. He was on Fleets enema, which I have stopped because of acute renal failure. He is on tramadol as needed and trazodone 50 mg at bedtime. ASSESSMENT: 84-year-old male with acute kidney injury superimposed on chronic kidney disease, right hip fracture and pawel hematuria. PLAN: 1. Acute kidney injury superimposed on chronic kidney disease, stage III. The patient clinically looks dehydrated. He was also taking torsemide 20 mg daily along with metolazone 2.5 mg by mouth twice a week as outpatient. Diuretics are already on hold. Continue gentle IV fluid hydration. Workup for hematuria is as mentioned below. 2. Pawel hematuria. The patient got a traumatic Merida catheter placement at [facility]. At this point, I would leave the Merida catheter in. Urology has been called. The patient will need a cystoscopy in the morning. 3. Fracture neck of femur on the right side. Continue optimization of the pain with morphine. Further management is as per orthopedic surgery. Before the patient goes for surgery hematuria needs to be controlled by neurology. 4. Acute on chronic leukocytosis. The patient is empirically getting ceftriaxone. 5. Iron deficiency anemia. The patient has chronic iron-deficiency anemia. Hemoglobin level is optimal. I am going to stop the oral iron at this time since the patient has constipation. 6. Chronic gout secondary to chronic kidney disease. Continue current dose of allopurinol 300 mg by mouth daily. Colchicine is being stopped because of acute renal failure. 7. Hypertension with chronic kidney disease. Blood pressures are soft at this time. Amlodipine has been stopped. Isosorbide has been stopped. Carvedilol dose had also been decreased to 6.25 by mouth twice a day. 8. Diabetes mellitus, type 2, insulin dependent. Okay to continue sliding scale insulin, a wide use of metformin. Thank you for involving in the care of this patient. I shall be happy to follow the patient along the tomorrow morning. AJ
[2019-06-30] MEDS ORDERED: ceFAZolin SOD 2 GM in IV 1 EA IV ONE (11:00)
--- NOTE | 2019-06-30 11:03 | CR ---
DATE OF CONSULTATION: 06/29/2019 INDICATION: Right hip fracture. HISTORY OF PRESENT ILLNESS: Raphael is an 84-year-old walker ambulator with multiple medical problems who had a fall several days ago. He had a Merida catheter placed and it is believed this was a traumatic Merida. He developed hematuria. He has worsening renal function now with a creatinine greater than 3. He had x-rays at an outside facility on 06/27/2019 of the knee that appeared negative for fracture. There are hip x-rays that show a minimally displaced subcapital femoral neck fracture. CT scan was obtained at [facility] today on 06/29/2019 that does show a impacted femoral neck fracture on the right side. The patient is reporting pain in his right groin and his right proximal tibia and knee. He has peripheral neuropathy from diabetes. He had a right knee meniscus surgery many years ago. He has psoriasis. The patient's pain is 6/10 on the scale that described as stabbing. It is improved with rest, made worse with any motion. He does not smoke. For the patient's full past medical history, past surgical history, medications, allergies, social history and review of systems, please see the admitting history and physical (H and P), which I personally reviewed. Physical exam reveals an elderly gentleman in no distress. Alert and oriented times three. Neurologic: Appropriate mood and affect. Cardiovascular: 1+ PT and DP pulses. Pulmonary: Nonlabored breathing. Abdomen is obese. Skin at the right hip at the anterior aspect has some psoriatic plaques. Musculoskeletal: There is no obvious swelling at the right hip although that evaluation is limited by adipose tissue. The patient does have tenderness to palpation over the greater trochanter. Logroll deferred. The patient has mild focal swelling at the tibial tubercle and a superficial abrasion there. He has a healed medial knee incision. The patella and distal femur, nontender. The medial tibial plateau is tender and the medial border of the tibial crest in the proximal third is also tender. He has stocking-glove numbness distally due to diabetic neuropathy. He can wiggle his toes. X-RAYS: I personally reviewed x-rays of the right knee from 06/27/2019 and there is no obvious fracture. This does not include the full tibia where he is having additional pain. There are degenerative changes. There are extensive vascular calcifications. X-ray of the right hip, CT right hip is available for my review. There is a mildly impacted femoral neck fracture. Careful inspection of axial, sagittal and coronal imaging shows this to be overall well lined. ASSESSMENT/PLAN: Raphael has an impacted right femoral neck fracture and right proximal tibia pain. Will need portable x-rays of the right tib/fib. At this point I explained to the patient it is a mendenhall area in terms of closed reduction or percutaneous pinning versus a hemiarthroplasty, however, I do believe this is amenable to pinning. Patient will need his kidney function improved prior to surgery per the hospitalist. Surgery would likely take place on 07/01/2019 potentially tomorrow on the . Meanwhile, we will get those careful portable tibial x-rays. I did relate to the patient anytime he is transferred or sent for any imaging, it needs to be a slide board transfer. No wheelchair. Very careful not to cause a displacement to that fracture. He understands that this requires surgery.
[2019-06-30] MEDS ORDERED: LIDOCAINE 2% 5ML JELLY UROJET TOP ONE (11:45)
--- NOTE | 2019-06-30 11:53 | IPNPDOC ---
Text Note Date of Service The patient was seen on 06/30/19. NOTE Subjective: Patient is an 84-year-old male with a PMHx of Chronic leukocytosis (follows with Oncology), IDDM2, HTN, ?CHF, DLP, Neuropathy, BPH, who presented as a transfer from [facility] after he had sustained a fall at home on 06/26. Patient presented to the ER with pain and found to have worsening renal function, he was admitted to the hospitalist service. Patient had a Merida catheter placed on 06/26 and at that point developed hematuria. Patient remained the hospital and was eventually transferred on 06/28 because of worsening kidney function / hematuria and uncontrolled right hip pain. Upon arrival to [facility] on 06/28, patient had repeat imaging of his hip that was consistent with a fracture of his femur. Orthopedic surgery was: Consultation. Patient's Creatinine was noted to be elevated significantly from his baseline and nephrology was called on consultation would also recommended consultation urology for his hematuria. Patient was seen and examined at the bedside. Currently, patient reports that his right hip still expenses pain, but is better controlled with IV pain medications. He denies any chest pain, shortness of breath or palpitations. Denies nausea, vomiting, abdominal pain. Does experience constipation. Patient has a Merida catheter in place. Objective: Vitals (See below) General: Lying in bed, appears comfortable, AAOx3 HEENT: NC, AT CVS: +S1S2 Lungs: Fair air entry b/l, no visual wheezing, rhonchi or crackles Abdomen: Soft, ND, NT Extremities: Trace/No pitting edema, - Calf tenderness Assessment and plan: Acute renal failure on CKD3 - Cr baseline of 1.2-2.0; creatinine on admission fo 3.54; currently at 3.5 - Patient without significant fluid overload - Merida catheter continues to put out adequate urine - Renal US pending - Will avoid nephrotoxic medications; hold diuretics - c/w IV fluid hydration; will adjust to dextrose based fluids - Nephrology on consultation; appreciate their input Hyperkalemia - Will give Kayexalate PO x 1 dose - Nephrology on consultation Hematuria - likely 2/2 traumatic Merida insertion - Patient reported significant pain on Merida insertion - Initial UA completed at [facility] was negative; became grossly positive for blood after Merida insertion - Hemodynamically stable - Hg has remained stable - Urology was called on consultation; initial plan for cystoscopy, however given stable Hg will be deferred and will proceed with surgical intervention of R hip R hip pain 2/2 R femur neck fracture - 2/2 mechanical fall - Patient reports hip pain is controlled with medications - CT hip 06/28: Acute transverse subcapital right femur neck fracture with mild varus and apex anterior angulation but minimal displacement. - COVID19 pre-op test pending - c/w pain control, PT/OT post-operatively - Orthopedic surgery has been called on consultation; anticipate surgical intervention today Leukocytosis, Acute on Chronic - possibly 2/2 reactive etiology, possibly 2/2 infectious etiology - ROS negative for any specific source - Initial UA at [facility] was reported normal - UA / Urine culture / Blood cultures are pending - CXR 06/28: Chronic-appearing changes. no focal consolidation or effusion. - c/w Ceftriaxone Constipation - c/w Bowel regimen as ordered HTN - Unclear CHF history - Moderately controlled BP; possibly 2/2 pain - Will check ECHO - c/w Carvedilol - Will hold diuretics (Torsemide / Metolazone IDDM2 with Neuropathy - c/w ISS - c/w Gabapentin DLP - c/w Atorvastatin Gout - c/w Allopurinol - Colchicine on hold Iron deficiency anemia - Hg remains stable - c/w Ferrous sulfate Insomnia / Depression / Anxiety - c/w Paroxetine, Trazodone BPH - c/w Finasteride DVT prophylaxis - c/w TEDs/Sequentials (re: Hematuria) Disposition: - Anticipate patient will go to OR today for R hip intervention VSChinyere, I+O VS, Chinyere, I+O Laboratory Tests 06/29/19 16:25 06/29/19 20:32 06/30/19 00:05 06/30/19 04:29 06/30/19 08:02 Vital Signs Date Time Temp Pulse Resp B/P (MAP) Pulse Ox O2 Delivery O2 Flow Rate FiO2 06/30/19 08:00 97.1 66 20 132/59 (83) 93 Room Air I&O- Last 24 Hours up to 6 AM 06/30/19 06:00 Intake Total 0 ml Output Total 625 ml Balance -625 ml MIGUELINA LAYTON MD June 30, 2019 11:53
[2019-06-30 12:28] LABS: BASO # 0.1 10^3/uL (0.0-0.2); BASO % 0.5 % (0.0-1.0); EOS # 0.9 10^3/uL (0.0-0.5); EOS % 4.6 % (0.0-3.0); HEMATOCRIT 35.5 % (42.0-52.0); HEMOGLOBIN 11.3 g/dl (13.5-17.5); LYMPH # 1.5 10^3/uL (1.5-5.0); LYMPH % 7.6 % (24.0-44.0); MEAN CORPUSCULAR HEMOGLOBIN 30.5 pg (27.0-33.0); MEAN CORPUSCULAR HGB CONC 31.8 g/dl (32.0-36.5); MEAN CORPUSCULAR VOLUME 95.9 fl (80.0-96.0); MONO # 0.9 10^3/uL (0.0-0.8); MONO % 4.9 % (0.0-5.0); NEUTROPHILS # 15.7 10^3/uL (1.5-8.5); NEUTROPHILS % 81.5 % (36.0-66.0); PLATELET COUNT, AUTOMATED 179 10^3/uL (150-450); WHITE BLOOD COUNT 19.2 10^3/uL (4.0-10.0)
[2019-06-30] MEDS ORDERED: SOD POLYSTYRENE SULFONATE SUSP 15 GM/60 ML UD PO ONE (12:30)
[2019-06-30 12:50] LABS: PERCENT SATURATION 12.9 % (19.7-50.0)
[2019-06-30] MEDS ORDERED: ONDANSETRON 4MG/2ML VIAL As Ordered ONE (12:53)
[2019-06-30] MEDS ORDERED: ROCURONIUM BROMIDE 50 MG/5 ML VIAL As Ordered ONE (12:53)
[2019-06-30] MEDS ORDERED: LIDOCAINE 2% 100MG/5ML SDV (FOR ANES.) As Ordered ONE (12:53)
[2019-06-30] MEDS ORDERED: MIDAZOLAM INJ 2MG/2ML VIAL (J2250 PER 1MG) As Ordered ONE (12:53)
[2019-06-30] MEDS ORDERED: propofoL 200 MG/20 ML VIAL As Ordered ONE (12:53)
[2019-06-30] MEDS ORDERED: fentaNYL 250 MCG/5 ML INJECTION (J3010) As Ordered ONE (12:53)
[2019-06-30] MEDS ORDERED: dexameTHASONE 4 MG/ML 1ML VIAL (J1100 PER 1MG) As Ordered ONE (12:53)
--- NOTE | 2019-06-30 12:55 | SMCUROLCON ---
Urology Consultation General Date of Consultation 06/30/19 Reason For Consultation This patient is seen for Acute Kidney Injury & Chronic Kidney Disease. History of Present Illness This is an 84 y/o M w/ a PMH significant for CHF, HTN, HL, LE edema, and DM2, transferred in from an OSH for CKD and gross hematuria. While out the OSH, the patient notes that nursing tried for about 15 minutes to get a catheter in and after it was placed, the hematuria started. He notes that catheter placement was quite painful. His catheter has drained well w/o need for irrigation. His Hb has been stable in the 11s. He is not on blood thinners. Review of UA from the OSH appears negative for UTI. The patient notes that he has had gross hematuria about 2 times previously. Each time it was associated w/ a UTI and cleared w/ antibiotics. He is a former smoker, noting that he has smoked for several years. He denies abdominal or flank pain. The patient only notes pain in his right leg. He was diagnosed w/ a fracture of the neck of his right femur 2/2 fall sustained prior to him being admitted to the OSH. There is plan for surgery for this today. Past Medical History Medical History see HPI Surgical Hstory Bilateral cataract surgery Right shoulder surgery Right knee surgery Medications Current Medications Current Medications Medications (Trade) Dose Ordered Sig/Estrella Route PRN Reason Start Time Stop Time Status Last Admin Dose Admin Acetaminophen (Tylenol Tab) 650 mg Q4H PRN PO PAIN OR FEVER 06/29/19 15:45 Al Hydrox/Mg Hydrox/Simethicone (Mylanta) 30 ml DAILY PRN PO DYSPEPSIA 06/29/19 15:45 Allopurinol (Zyloprim) 300 mg DAILY PO 06/30/19 09:00 06/30/19 07:48 Amlodipine Besylate (Norvasc) 5 mg DAILY PO 06/30/19 09:00 06/29/19 18:46 DC Atorvastatin Calcium (Lipitor) 10 mg DAILY@1800 PO 06/29/19 18:00 06/29/19 20:30 Carvedilol (COReg) 6.25 mg BID PO 06/30/19 09:00 06/30/19 07:49 Carvedilol (COReg) 12.5 mg BID PO 06/29/19 21:00 06/29/19 22:18 DC 06/29/19 20:31 Ceftriaxone Sodium 1 gm/ Dextrose 50 ml @ 100 mls/hr Q24H IV 06/29/19 20:00 06/29/19 20:30 Colchicine (Colcrys) 0.6 mg ASDIRECTED PO 06/29/19 17:30 06/29/19 18:47 DC Dextrose (Dextrose 50%) 25 ml ASDIRECTED PRN IV SEE LABEL COMMENTS 06/29/19 15:45 Dextrose/Sodium Chloride 1,000 ml @ 75 mls/hr [id number] IV 06/30/19 10:45 Docusate Sodium (Colace) 100 mg BID PO 06/29/19 21:00 06/30/19 07:48 Ferrous Sulfate (Ferrous Sulfate) 325 mg BID PO 06/29/19 21:00 06/29/19 18:47 DC Finasteride (Proscar) 5 mg DAILY PO 06/30/19 09:00 06/30/19 07:48 Gabapentin (Neurontin) 100 mg TID PO 06/29/19 21:00 06/30/19 07:48 Glucagon (Glucagon) 1 mg ASDIRECTED PRN SC SEE LABEL COMMENTS 06/29/19 15:45 Glucose (Glucose) 16 GM ASDIRECTED PRN PO SEE LABEL COMMENTS 06/29/19 15:45 Home Med (Med Rec Complete!) ASDIRECTED XX 06/29/19 18:45 06/29/19 18:49 DC Insulin Human Lispro (HumaLOG INSULIN) See Protocol Table AC SC 06/29/19 17:30 06/29/19 18:06 Insulin Human Lispro (HumaLOG INSULIN) See Protocol Table QHS SC 06/29/19 21:00 Isosorbide Dinitrate (Isordil) 30 mg DAILY PO 06/30/19 09:00 06/29/19 19:00 DC Magnesium Hydroxide (Milk Of Magnesia) 30 ml DAILY PRN PO CONSTIPATION 06/29/19 15:45 Morphine Sulfate (Morphine Sulfate Inj) 1 mg Q3H PRN IV MODERATE PAIN (PS 5-7) 06/29/19 20:15 06/30/19 03:48 Paroxetine HCl (PAXil) 10 mg DAILY PO 06/30/19 09:00 06/30/19 07:48 Sodium Biphosphate/ Sodium Phosphate (Fleet Enema) 1 ea DAILYPRN PRN IL CONSTIPATION 06/29/19 17:30 06/29/19 18:48 DC Sodium Chloride 1,000 ml @ 80 mls/hr [id number] IV 06/29/19 18:00 06/30/19 10:32 DC 06/30/19 06:45 Tramadol HCl (Ultram) 50 mg Q4HP PRN PO MODERATE PAIN (PS 5-7) 06/29/19 20:15 06/29/19 20:31 Trazodone HCl (Desyrel) 50 mg QHS PO 06/29/19 21:00 06/29/19 20:30 Allergies Allergies: Coded Allergies: No Known Allergies (Verified , 08/11/02) Review of Systems Constitutional: Denies: Fever, Chills, Sweats, Weakness, Malaise Skin: Denies: Rash, Lesions, Breakdown, Nail Changes Pulmonary: Denies: Dyspnea Cardiovascular: Denies Chest Pain, Denies Palpitations Gastrointestinal: Denies: Nausea, Vomiting, Abdominal Pain Genitourinary: Reports: Hematuria, Retention Musculoskeletal: Reports: Leg Pain (right leg) Neurological: Denies: Weakness, Numbness Psych: Reports: Mood Normal Physical Examination General Exam: Alert, No Acute Distress Chest Exam: Normal air movement Heart Exam: Rate Normal Abdomen Exam: Soft; No: Tenderness Male Exam 16Fr catheter in place w/ yellow urine draining through tubing and a few small clots Skin Exam: Nl turgor and temperature Neuro Exam: Normal Speech Psych Exam: Mental status NL, Mood NL Vital Signs/I&O Vital Signs Date Time Temp Pulse Resp B/P (MAP) Pulse Ox O2 Delivery O2 Flow Rate FiO2 06/30/19 08:00 97.1 66 20 132/59 (83) 93 Room Air I&O- Last 24 Hours up to 6 AM 06/30/19 06:00 Intake Total 0 ml Output Total 625 ml Balance -625 ml Laboratory Data 24H Labs Laboratory Tests 2 06/29/19 16:25: Immature Granulocyte % (Auto) 0.9, Neutrophils (%) (Auto) 79.0H, Lymphocytes (%) (Auto) 8.6L, Monocytes (%) (Auto) 4.7, Eosinophils (%) (Auto) 6.5H, Basophils (%) (Auto) 0.3, Neutrophils # (Auto) 16.3H, Lymphocytes # (Auto) 1.8, Monocytes # (Auto) 1.0H, Eosinophils # (Auto) 1.3H, Basophils # (Auto) 0.1, Nucleated Red Blood Cells % (auto) 0.0, Prothrombin Time 14.4H, Prothromb Time International Ratio 1.15, Anion Gap 11, Glomerular Filtration Rate 17.6L, Lactic Acid Level 1.7, Calcium Level 7.7L, Total Bilirubin 0.2, Aspartate Amino Transf (AST/SGOT) 15, Alanine Aminotransferase (ALT/SGPT) 14, Alkaline Phosphatase 84, Total Protein 5.3L, Albumin 2.3L, Albumin/Globulin Ratio 0.8 06/29/19 17:32: Bedside Glucose (Misc Panel) 142H 06/29/19 20:16: Bedside Glucose (Misc Panel) 145H 06/29/19 20:32: Immature Granulocyte % (Auto) 0.6, Neutrophils (%) (Auto) 79.2H, Lymphocytes (%) (Auto) 7.8L, Monocytes (%) (Auto) 5.2H, Eosinophils (%) (Auto) 6.8H, Basophils (%) (Auto) 0.4, Neutrophils # (Auto) 15.4H, Lymphocytes # (Auto) 1.5, Monocytes # (Auto) 1.0H, Eosinophils # (Auto) 1.3H, Basophils # (Auto) 0.1, Nucleated Red Blood Cells % (auto) 0.0 06/30/19 00:05: Immature Granulocyte % (Auto) 0.8, Neutrophils (%) (Auto) 79.6H, Lymphocytes (%) (Auto) 8.4L, Monocytes (%) (Auto) 4.7, Eosinophils (%) (Auto) 6.1H, Basophils (%) (Auto) 0.4, Neutrophils # (Auto) 16.0H, Lymphocytes # (Auto) 1.7, Monocytes # (Auto) 0.9H, Eosinophils # (Auto) 1.2H, Basophils # (Auto) 0.1, Nucleated Red Blood Cells % (auto) 0.0 06/30/19 04:29: Immature Granulocyte % (Auto) 0.7, Neutrophils (%) (Auto) 79.2H, Lymphocytes (%) (Auto) 8.9L, Monocytes (%) (Auto) 5.0, Eosinophils (%) (Auto) 5.8H, Basophils (%) (Auto) 0.4, Neutrophils # (Auto) 15.1H, Lymphocytes # (Auto) 1.7, Monocytes # (Auto) 1.0H, Eosinophils # (Auto) 1.1H, Basophils # (Auto) 0.1, Nucleated Red Blood Cells % (auto) 0.0, Anion Gap 9, Glomerular Filtration Rate 17.9L, Calcium Level 7.4L, Magnesium Level 2.0 06/30/19 08:02: Immature Granulocyte % (Auto) 0.7, Neutrophils (%) (Auto) 78.5H, Lymphocytes (%) (Auto) 9.2L, Monocytes (%) (Auto) 5.1H, Eosinophils (%) (Auto) 5.9H, Basophils (%) (Auto) 0.6, Neutrophils # (Auto) 15.7H, Lymphocytes # (Auto) 1.8, Monocytes # (Auto) 1.0H, Eosinophils # (Auto) 1.2H, Basophils # (Auto) 0.1, Nucleated Red Blood Cells % (auto) 0.0 06/30/19 09:22: Bedside Glucose (Misc Panel) 151H 06/30/19 11:13: Coronavirus (COVID-19)(PCR) NEGATIVE 06/30/19 12:12: Bedside Glucose (Misc Panel) 150H 06/30/19 12:13: Immature Granulocyte % (Auto) 0.9, Neutrophils (%) (Auto) 81.5H, Lymphocytes (%) (Auto) 7.6L, Monocytes (%) (Auto) 4.9, Eosinophils (%) (Auto) 4.6H, Basophils (%) (Auto) 0.5, Neutrophils # (Auto) 15.7H, Lymphocytes # (Auto) 1.5, Monocytes # (Auto) 0.9H, Eosinophils # (Auto) 0.9H, Basophils # (Auto) 0.1, Nucleated Red Blood Cells % (auto) 0.0 CBC/BMP Laboratory Tests 06/29/19 16:25 06/29/19 20:32 06/30/19 00:05 06/30/19 04:29 06/30/19 08:02 06/30/19 12:13 Microbiology Microbiology 06/29/19 Blood Culture, Received Pending 06/29/19 Blood Culture, Received Pending Assessment This is an 84 y/o M transferred in for management of ANICETO on CKD, hematuria, and a right femoral neck fracture. From report, the hematuria was likely 2/2 catheter trauma. I do not recommend any intervention at this time as his Hb has been stable and the hematuria is clearing up. He will ultimately require a full w/u as an outpatient, including a CT urogram (if his Cr improves) and a cystoscopy. Plan - no w/u required at this time - ok to start blood thinners after his orthopedic surgery - monitor to see if hematuria worsens after starting anticoagulation - if so, his catheter should be changed out to a larger one (at least 22Fr) as his 16Fr catheter might clot off if hematuria is significant - assuming his hematuria does not worsen, we will arrange for hematuria w/u as an outpatient JOHN GARVIN MD June 30, 2019 12:55
[2019-06-30] MEDS ORDERED: PHENYLEPHRINE 10MG/ML 1ML VIAL (J2370 PER 1) As Ordered ONE (13:15)
[2019-06-30] MEDS ORDERED: BUPIVACAINE/EPIN 0.5% 30 ML VIAL As Ordered ONE (13:16)
[2019-06-30] MEDS ORDERED: ceFAZolin 2 GM/D5W 50 ML IV BAG (J0690 PER 500MG) As Ordered ONE (13:16)
[2019-06-30] MEDS ORDERED: ePHEDrine SULFATE 25 MG/5 ML(5MG/ML) SYRINGE As Ordered ONE (13:18)
[2019-06-30] MEDS ORDERED: SUGAMMADEX SODIUM 500 MG/5 ML VIAL (BRIDION) As Ordered ONE (13:39)
--- NOTE | 2019-06-30 14:17 | HPE ---
DATE OF ADMISSION: 06/29/2019 CHIEF COMPLAINT: Right femoral neck fracture. HISTORY OF PRESENT ILLNESS: This is an 84-year-old man who is seen today in preoperative holding for plan for right hip fracture fixation. He had a mechanical fall at home on 06/27/2019. He tripped and stumbled at home in washroom and fell down. No head injury or other pain or problems. Initial x-rays were negative, however followup CT demonstrated a nondisplaced femoral neck fracture of the right hip. He had a traumatic Merida placed. He has been seen by urology her at [facility] and they are recommending no intervention other than monitoring his urine. PAST MEDICAL HISTORY: Includes chronic leukocytosis, diabetes mellitus, insulin dependent. MEDICATIONS: Include: - allopurinol - amlodipine - aspirin - atorvastatin - betamethasone - carvedilol - clotrimazole - docusate - ferrous sulfate - finasteride - gabapentin - insulin - metolazone - paroxetine - potassium chloride - sulfamethoxazole - trimethoprim - torsemide - trazodone NO KNOWN DRUG ALLERGIES. SURGICAL HISTORY: Bilateral cataract, right knee arthroscopy, artificial right shoulder. SOCIAL HISTORY: Smoke cigarettes. Denies drug use. He lives alone. He uses a walker occasionally. His contact is his son, Bakari. PHYSICAL EXAMINATION: This is a well appearing 84-year-old man who appears alert and oriented times three. Answers questions appropriately. Vital signs are stable. Skin intact right hip. Sensation in his foot is warm and well perfused. Good pedal pulses. The right hip was marked. No pain elsewhere. Radiographs were reviewed from [facility] of the right hip. There is no obvious fracture. CT scan was reviewed of the right hip. This shows a well-aligned right femoral neck fracture. It is slightly impacted. There is no obvious displacement. Radiographs were reviewed of the left tibia and fibula. These showed no obvious tibia fracture although there is a possible radial lucent line at the lateral tibial plateau. COVID testing is negative. Hemoglobin is 11.3. ASSESSMENT AND PLAN: This is 84-year-old man has minimally displaced right femoral neck fracture. I explained the pros and cons, risks and benefits of nonsurgical management versus going ahead with open reduction, internal fixation in the form of cannulated screws, possible hemiarthroplasty of right hip if there is a significant change in amount displacement or unable to maintain the reduction with cannulated screws. The surgical risks include but are not limited to infection, pain, stiffness, bleeding, weakness, damage to surrounding structures, delayed mal or nonunion, anesthetic complications, blood clots, , and other risks. He wished to go ahead. We signed the consent form for surgery, marked the right lower extremity. I also consented for possible need for blood products and I explained the pros and cons, risks and benefits of that to him as well. He wishes to go ahead. In addition, I will x-ray his left knee as according to Dr. Medina there was some pain of his left knee and possible concern for tibia fracture although do not see anything definitive there these were limited views of the knee and I will re-image the knee during surgery. AJ
[2019-06-30] MEDS ORDERED: ONDANSETRON 4MG/2ML VIAL IV PRN (15:00)
[2019-06-30] MEDS ORDERED: fentaNYL 100 MCG/2 ML INJECTION (J3010) IV PRN (15:00)
[2019-06-30] MEDS ORDERED: oxyCODONE 5MG TAB PO PRN (15:00)
[2019-06-30] MEDS ORDERED: NS 1,000 ML IV SCH (15:00)
[2019-06-30] MEDS ORDERED: LR 1,000 ML IV SCH (15:00)
[2019-06-30] MEDS: ATORVASTATIN 10 MG TAB PO SCH (17:07)
--- NOTE | 2019-06-30 18:29 | IPN ---
DATE: 06/30/2019 SUBJECTIVE: The patient was seen and examined at the bedside today morning. The patient is afebrile, hemodynamically stable. He continues to been intravenous (IV) fluid hydration. His Merida catheter urine is getting more clear. It is orange colored. James hematuria is resolving. He was seen by urology. No cystoscopy was recommended. The patient was seen by orthopedics as well because of right hip fracture, and they are recommending surgery either today or tomorrow. There is no significant improvement in the renal function on the left; however, the patient is nonoliguric, and I saw there was almost 400-500 mL of urine in the bag today. The patient still complains of moderate amount of pain in the right hip. OBJECTIVE: VITAL SIGNS: Temperature is 97.1 degrees Fahrenheit, blood pressure 132/59, pulse is 66, respiratory rate 20, saturating 93% on room air. Intake and output: Urine output recorded is 275 mL; that is from overnight. He has made around 300-400 mL of urine since morning as well, which is reassuring. HEAD AND NECK: Extraocular muscles intact. Pupils equally round and reactive to light. Mucous membranes are moist. Neck is supple. There is no jugular venous distention (JVD). CARDIOVASCULAR: S1, S2, regular rate. Edema 1+ of the bilateral lower extremities. RESPIRATORY: Chest is clear to auscultation bilaterally. Bilateral equal air entry. No rales or rhonchi. ABDOMEN: Soft. Positive bowel sounds. Mildly tender to deep palpation in the lower abdomen, and he has a fungal rash in the abdominal crease. GENITOURINARY: He has an indwelling Merida catheter. Urine in the bag is getting clear now. MUSCULOSKELETAL: Decreased range of movement of the right hip because of right hip fracture. CENTRAL NERVOUS SYSTEM: : No focal deficit. Power is 5/5 in bilateral upper extremities. LABORATORY REVIEW: CBC showed a WBC of 20, hemoglobin 11.4, platelets are 180. BMP showed sodium 136, potassium 5.3, chloride 106, bicarbonate 21, BUN 70, creatinine 3.5. It was 3.56 yesterday. Calcium is 7.4. Magnesium is 2. CURRENT INPATIENT MEDICATIONS: The patient medications were all reviewed by myself. Intravenous (IV) normal saline was stopped today. He is nothing by mouth, so he is getting D5 half-normal saline at 75 mL an hour. He continues to been on IV Rocephin. One dose of Ancef is going to be given today before the operating room (OR). Coreg dose was decreased to 6.25 mg by mouth twice a day yesterday. Isosorbide has also been stopped. The patient was given a dose of Kayexalate 15 grams by mouth today. ASSESSMENT AND PLAN: 1. Acute kidney superimposed on chronic kidney disease, stage III. The patient's IV fluids have been changed to D5 half-normal saline at 75 mL an hour. He is nonoliguric, which is reassuring. All the diuretics on hold. Baseline creatinine is 1.6. I believe that his creatinine has plateaued and his renal function should start improving. 2. Hematuria. Most likely is secondary to traumatic Merida catheter placement. He was seen by urology. No cystoscopy was recommended. Urine is getting more clear now. 3. Fracture neck of femur on the right side. The patient was seen by orthopedics, and they are recommending right hip surgery. The patient is optimized from nephrology standpoint to be taken to OR. 4. Hyperkalemia. The patient was already given a dose of Kayexalate. Continue potassium-free IV fluids. 5. Iron-deficiency anemia. Oral iron was stopped because of constipation. Hemoglobin level is stable at this time. 6. Chronic gout secondary to chronic kidney disease. Allopurinol dose is being decreased to 100 mg daily because of acute renal failure. 7. Hypertension. The patient's blood pressure medications have been changed. Coreg has been decreased to 6.25 mg by mouth twice a day. Isosorbide has been stopped. Amlodipine was also held on admission. 8. Diabetes mellitus, type 2. Continue insulin sliding scale.
[2019-06-30] MEDS: cefTRIAXone SOD 1 GM in D5W MINI-BAG PLUS 50 ML IV SCH (20:38)
[2019-06-30] MEDS: traMADol 50 MG TAB PO PRN (20:39)
[2019-06-30] MEDS: traZODone 50 MG TAB PO SCH (20:39)
[2019-07-01] VITALS (12 sets, daily range): BP systolic 136–170; BP diastolic 60–74; O2SAT 92–98
[2019-07-01 07:41] LABS: BASO % 0.2 % (0.0-1.0); HEMATOCRIT 35.4 % (42.0-52.0); HEMOGLOBIN 11.5 g/dl (13.5-17.5); LYMPH # 1.1 10^3/uL (1.5-5.0); LYMPH % 5.2 % (24.0-44.0); MEAN CORPUSCULAR HEMOGLOBIN 31.3 pg (27.0-33.0); MEAN CORPUSCULAR HGB CONC 32.5 g/dl (32.0-36.5); MEAN CORPUSCULAR VOLUME 96.2 fl (80.0-96.0); MONO # 0.8 10^3/uL (0.0-0.8); MONO % 3.9 % (0.0-5.0); NEUTROPHILS # 18.4 10^3/uL (1.5-8.5); NEUTROPHILS % 89.6 % (36.0-66.0); PLATELET COUNT, AUTOMATED 199 10^3/uL (150-450); RED BLOOD COUNT 3.68 10^6/uL (4.30-6.10); WHITE BLOOD COUNT 20.5 10^3/uL (4.0-10.0)
--- NOTE | 2019-07-01 07:56 | REP ---
Urinary tract sonogram: History: Acute kidney insufficiency. Preliminary report is provided at the time of the exam by Dr. Gee. Comparison: No comparisons. Findings: Scanning at the level of the urinary bladder shows no abnormality. A Merida catheter is in place. Renal cortical echogenicity pattern is normal bilaterally and contours are smooth. There is no evidence of hydronephrosis, cyst, mass, or calculus in either kidney. The right kidney measures 10.6 x 5.4 x 5.0 cm. Left renal dimensions are 11.7 x 5.0 x 5.9 cm. Impression: Normal urinary tract sonography. No evidence of hydronephrosis. Electronically Signed by Shravan Jimenez MD 07/01/2019 07:48 A
[2019-07-01 08:09] LABS: CALCIUM LEVEL 7.6 MG/DL (8.8-10.2); CREATININE FOR GFR 3.51 MG/DL (0.70-1.30); GLOMERULAR FILTRATION RATE 17.9 (>35); POTASSIUM SERUM 5.7 MEQ/L (3.5-5.1)
--- NOTE | 2019-07-01 08:47 | REP ---
RIGHT HIP SERIES: Six views. HISTORY: Pinning right hip in OR. 2 minutes 14 seconds of fluoroscopy time is reported. FINDINGS: A sequence of six last image hold fluoroscopically obtained spot radiographs of the right hip document metallic screw fixation pinning. Electronically Signed by Shravan Jimenez MD 07/01/2019 10:59 A
[2019-07-01] MEDS: HumaLOG INSULIN (NovoLOG) PER UNIT SC SCH ×4 (09:54→20:57)
[2019-07-01] MEDS: FINASTERIDE 5 MG TAB PO SCH (09:54)
[2019-07-01] MEDS: CARVedilol 12.5 MG TAB PO SCH ×2 (09:55→20:56)
[2019-07-01] MEDS: allopurinoL 300 MG TAB PO SCH (09:55)
[2019-07-01] MEDS: PARoxetine 10MG TABLET PO SCH (09:55)
[2019-07-01] MEDS: DOCUSATE SODIUM 100 MG CAP PO SCH (09:55)
[2019-07-01] MEDS: GABAPENTIN 100 MG CAP PO SCH ×3 (09:55→20:57)
--- NOTE | 2019-07-01 10:01 | ECHO ---
DATE OF PROCEDURE: 06/30/2019 DATE OF : 1935 AGE: 84 GENDER: Male. HEIGHT: 70 inches WEIGHT: 275 pounds BODY SURFACE AREA: 2.38 m2 INPATIENT: PCU Room 3223 REFERRING PHYSICIAN: Dr. Giovanni Mahoney INDICATION: Edema. MEASUREMENTS: 2-D Measurements: RV: 4.2 cm LV: 5.6 cm Septum: 1.2 cm Posterior wall: 1.2 cm Aortic root: 3.5 cm LA: 4.0 cm LVEF: 55% Doppler Measurements: AV: 3.2 m/sec LVOT: 0.7 m/sec LVOT diameter: 1.8 cm Mean AV gradient: 28 mmHg Dimensionless index: 0.18 MV - E: 118, A: 40, EA ratio: 3 Early mitral deceleration time: 148 ms E prime medial: 11.9, A prime medial: 6.6, E prime lateral: 14.3 Average E/E prime ratio: 9/PCWP 13 mmHg PV: 0.7 m/sec Pulmonary artery acceleration time: 77 ms RVSP: 49 mmHg IVC: 2.6 cm COMMENTS: Sinus rhythm with first-degree AV block. Technically challenging study in light of the patient's body habitus but diagnostically useful information was still obtained. M-mode and two-dimensional echocardiography was performed with pulsed, continuous wave, color flow and tissue Doppler studies. Slightly dilated and borderline hypertrophied left ventricle with wall motion within normal limits, estimated ejection fraction lower limits of normal. Borderline left atrial enlargement with grade 2 LV diastolic dysfunction and current estimated mean left atrial pressure upper limits of normal. Mildly dilated right ventricle with normal wall motion and at least moderately severe pulmonary hypertension. Mildly dilated right atrium and moderately dilated IVC with virtually absent respiratory collapse in keeping with elevated central venous pressure/right heart failure. Normal aortic dimensions. Moderately severely calcified aortic valve. Unable to determine precise number of cusps. Severely limited cuff separation with dimensionless index indicating severe-critical aortic stenosis. Moderate mitral annular thickening with adequate leaflet excursion and no posterior systolic buckling and only very mild aortic insufficiency. Normal appearing tricuspid valve with mild insufficiency. No apparent intracardiac mass or pericardial effusion. Based on the above tests findings, we would recommend transfer for cardiac catheterization with view to aortic valve replacement.
--- NOTE | 2019-07-01 10:04 | REP ---
CHEST, SINGLE VIEW: Single view of the chest is performed. There are no prior studies for comparison. Cardiac silhouette is mildly prominent. There appears to be pulmonary venous hypertension. No acute infiltrate is seen in either lung. There is some calcification of the thoracic aorta. Mediastinal silhouette is otherwise unremarkable. Metallic prosthesis is noted of the proximal right humerus. IMPRESSION: Suspect cardiomegaly. No evidence of acute infiltrate. Electronically Signed by Tyler Devine MD 07/01/2019 01:38 P
--- NOTE | 2019-07-01 10:46 | IPNPDOC ---
Text Note Date of Service The patient was seen on 07/01/19. NOTE Subjective: Patient seen and examined at bedside. No acute overnight events reported. No new medical complaints this morning. Objective: Vitals (See below) General: Lying in bed, appears comfortable, AAOx3 HEENT: NC, AT CVS: +S1S2, soft systolic murmur Lungs: Fair air entry b/l, no wheezing, rhonchi or crackles Abdomen: Soft, ND, NT; johnson catheter in place - hematuria noted Extremities: Trace/No pitting edema, - Calf tenderness, chronic venous stasis changes A/P: 84-year-old male with a PMHx of Chronic leukocytosis (follows with Oncology), IDDM2, HTN, ?CHF, DLP, Neuropathy, BPH, who presented as a transfer from [facility] after he had sustained a fall at home on 06/26. Patient presented to the ER with pain and found to have worsening renal fun ction, he was admitted to the hospitalist service. Patient had a Johnson catheter placed on 06/26 and at that point developed hematuria. Patient remained the hospital and was eventually transferred on 06/28 because of worsening kidney function / hematuria and uncontrolled right hip pain. Upon arrival to [facility] on 06/28, patient had repeat imaging of his hip that was consistent with a fracture of his femur. Orthopedic surgery was: Consultation. Patient's Creatinine was noted to be elevated significantly from his baseline and nephrology was called on consultation would also recommended consultation urology for his hematuria. #Acute renal failure on CKD3 - Johnson catheter continues to put out adequate urine - Renal US noted - Will avoid nephrotoxic medications; hold diuretics - c/w IV fluid hydration; will adjust to dextrose based fluids - Nephrology on consultation; appreciate their input #Hyperkalemia - Nephrology on consultation #Hematuria - likely 2/2 traumatic Johnson insertion - Patient reported significant pain on Johnson insertion - Initial UA completed at [facility] was negative; became grossly positive for blood after Johnson insertion - Hemodynamically stable - Hg has remained stable - Urology on consultation - assistance appreciated #R hip pain 2/2 R femur neck fracture - 2/2 mechanical fall - Orthopedic surgery has been called on consultation - POD #1 - Patient reports hip pain is controlled with medications - CT hip 06/28: Acute transverse subcapital right femur neck fracture with mild varus and apex anterior angulation but minimal displacement. - COVID19 pre-op test pending - c/w pain control, PT/OT post-operatively #Leukocytosis, Acute on Chronic - possibly 2/2 reactive etiology, possibly 2/2 infectious etiology - ROS negative for any specific source - Initial UA at [facility] was reported normal - UA / Urine culture / Blood cultures are pending - CXR 06/28: Chronic-appearing changes. no focal consolidation or effusion. - c/w Ceftriaxone #Constipation - c/w Bowel regimen as ordered #HTN - Unclear CHF history - Moderately controlled BP; possibly 2/2 pain - Will check ECHO - c/w Carvedilol - Will hold diuretics (Torsemide / Metolazone #IDDM2 with Neuropathy - c/w ISS - c/w Gabapentin #DLP - c/w Atorvastatin #Gout - c/w Allopurinol - Colchicine on hold #Iron deficiency anemia - Hg remains stable - c/w Ferrous sulfate #Insomnia / Depression / Anxiety - c/w Paroxetine, Trazodone #BPH - c/w Finasteride #DVT prophylaxis - c/w TEDs/Sequentials (re: Hematuria) VS,Fishbone, I+O VS, Fishbone, I+O Laboratory Tests 06/30/19 12:13 07/01/19 07:30 Vital Signs Date Time Temp Pulse Resp B/P (MAP) Pulse Ox O2 Delivery O2 Flow Rate FiO2 07/01/19 09:55 64 149/65 07/01/19 08:00 97.0 22 97 Nasal Cannula 2.0 I&O- Last 24 Hours up to 6 AM 07/01/19 06:00 Intake Total 2420 ml Output Total 1685 ml Balance 735 ml MIYA DAVILA MD July 01, 2019 10:46
[2019-07-01] MEDS ORDERED: FUROSEMIDE 40MG/4ML VIAL (J1940) IV ONE (12:00)
[2019-07-01] MEDS ORDERED: BISACODYL 10 MG SUPP PR ONE (12:00)
[2019-07-01] MEDS: traMADol 50 MG TAB PO PRN ×2 (12:03→16:35)
[2019-07-01] MEDS: MIRALAX *UNIT DOSE* 17GM PACKET PO SCH ×2 (12:03→20:57)
[2019-07-01] MEDS ORDERED: SOD POLYSTYRENE SULFONATE SUSP 15 GM/60 ML UD PO ONE (13:00)
--- NOTE | 2019-07-01 13:14 | IPN ---
DATE OF SERVICE: 07/01/2019 Mr. Green was seen and examined this morning during bedside rounds. Yesterday, he had an internal fixation of his right femoral neck fracture by Dr. Parada which he tolerated very well. He had physical therapy (PT) this morning as well. He notes that the Merida continues to drain. Last night, it did have some clotting and had to be irrigated, but he continued to put out a good amount of urine. He has no significant complaint today, except he has not had a bowel movement since last and he does feel a little backed up. No other overnight events reported by nursing. PHYSICAL EXAMINATION: Vitals: Temperature 97.0, pulse 64, respirations 22, blood pressure 149/65 (93), pulse oximetry 97% on 2 liters of nasal cannula. Ins and Outs: Intake total 2150, output total 1260, net balance of positive 890 mL, 0 bowel movements, weight this morning of 125.1 kg. General: This is a very pleasant, 83-year-old male who does not appear in any acute distress, laying comfortably in his bed appropriately answering questions. Atraumatic, normocephalic. Pupils equal round and reactive. Heart: S1, S2 sounds are present. Regular rate and rhythm. Continues to have 1+ bilateral pitting edema, but hasn't worsened. Respirations clear to auscultate bilaterally. No audible wheezing, rhonchi or rales. Obese abdomen. No tenderness to palpation of the deep abdomen at this time. Soft. Hypoactive bowel sounds. Neurologic: No neuro deficits noted, but does have a slight intention tremor on the right hand which possibly is baseline. LABORATORIES: WBC 20.5, hemoglobin 11.5, hematocrit 35.4, platelets 199. Chemistries: Sodium 134, potassium 5.7, chloride 103, carbon dioxide 20, anion gap 11, BUN 82, creatinine 3.51, fasting glucose 332. IMAGING: Renal ultrasound from yesterday shows normal urinary tract sonogram, no evidence of hydronephrosis. Renal cortical echogenicity is normal bilaterally as well. ASSESSMENT AND PLAN: 1. Acute kidney injury superimposed by chronic kidney injury Stage III. His IV fluids yesterday was lactated ringers (LR). He has continued to put out urine. Even those his kidney function has bumped a little bit, he is slightly fluid overloaded. Will give him a dose of Lasix, furosemide IV once right now, and will monitor his kidney function as well as urine output. 2. Hyperkalemia. Potassium slightly elevated at 5.7 this morning, possibly secondary to the lactated ringers that he got yesterday in the operating room (OR) as well as the fact that he has not had a bowel movement since getting the Kayexalate yesterday. We recommend giving him some stool softeners and a laxative to help him have a bowel movement. Once he has one, will give another dose of Kayexalate and Lasix to help reduce his potassium. Will continue to monitor. 3. Hematuria. His hemoglobin this morning is stable at 9.0. He does have some blood clots seen pass in the Merida. He has been evaluated by urology who did not recommend cystoscopy. Will continue to monitor with the Merida. 4. Right femoral neck fracture status post internal fixation by orthopedics. They did recommend Xarelto 10 mg daily for deep vein thrombosis (DVT) prophylaxis for 35 days, but because of his creatinine clearance being less than 16, we do recommend changing it to Eliquis 2.5 mg twice a day for the next 35 days. 5. Iron deficiency anemia. His oral iron supplementation was held due to constipation. His hemoglobin/hematocrit (H/H) is stable. We did give him a one dose of Venofer today so will have to monitor . We are giving him stool softeners so should help with the constipation. 6. Chronic gout secondary to chronic kidney disease. Will restart his allopurinol 100 mg by mouth daily. 7. Diabetes. Fasting glucose this morning slightly elevated at 332. He is on insulin sliding scale. Will refer to primary team for glycemic control. 8. Hypertension. His blood pressure this morning was controlled relatively at 149/65. We will continue him on the Coreg 6.25 mg twice a day. He continues to have isosorbide and amlodipine on hold. He will be getting a Lasix 40 mg one time dose right now for his hyperkalemia, so we will monitor his blood pressure. He also has pain control meds that can also lower his blood pressure so the 140 is relatively good. Will continue to monitor.
--- NOTE | 2019-07-01 13:37 | RO ---
DATE OF PROCEDURE: 06/30/2019 PREOPERATIVE DIAGNOSIS: Right femoral neck fracture. POSTOPERATIVE DIAGNOSIS: Right femoral neck fracture. PLANNED PROCEDURE: Right hip open reduction internal fixation, (cannulated screws). PROCEDURE PERFORMED: Right hip open reduction internal fixation, (cannulated screws). SURGEON: Dr. aVldemar Parada ANESTHESIOLOGIST: Dr. Escobar. ANESTHESIA: General anesthesia. OPERATIVE PREAMBLE: 84-year-old man who sustained a mechanical fall at home. He sustained a minimally displaced femoral neck fracture. We talked about the pros and cons, risks and benefits going ahead with cannulated screw/open reduction internal fixation (ORIF) versus nonoperative treatment versus hemiarthroplasty. Specific surgical risks include, but are not limited to infection, pain, stiffness, weakness, damage to surrounding structures, delayed, mal- or nonunion, need for additional surgery, need for hemiarthroplasty and in the future varus collapse, anesthetic complications, blood clots, neurovascular injury, and other risks. He wished to go ahead and signed a consent form for surgery. We marked the right lower extremity and proceed to surgery. DESCRIPTION OF PROCEDURE: The patient was brought to the operating theater. He was placed supine on the fracture table. He was gently transferred over. Right leg in traction alford but without traction. Left leg scissored down appropriately padded with a pillow. All bony prominences were padded. Sequential compression device (SCD) used on the down leg. Merida was positioned more towards the patient's left side. Bear hugger was used. 1 gram of IV Ancef was administered prior to the start of the case. General anesthesia was induced. Limb was prepped and draped in the usual sterile fashion allowing over 3 minutes for the prep solution drying time. A shower curtain-type drape was used and draped over the left side of the patient. Preoperative time-out was performed to confirm the site and the patient and surgery. I began by attempting to insert the first 3.2 mm partially threaded guide wire percutaneously. The soft tissues precluded me being able to do this so I made a small linear incision approximately an inch long. I carried dissection down through skin and subcutaneous tissue achieving meticulous hemostasis. I inserted first a guide wire up into the inferior most calcar staying slightly at or above the level of the lesser trochanter on the AP radiographs. Took lateral radiographs. I positioned this more towards the center of the femoral neck and head and subchondral bone. I then used the diversion guide to place the anterosuperior, posterosuperior guidewires in the same fashion down to the subchondral bone. Attempted to achieve as much spread as possible. I inserted the guidewires in an inverted triangle fashion. I measure these. The inferior most one was 105 so I selected a 100 mm screw. The anterosuperior one was 93 mm and as such I selected a 90 mm screw and the posterosuperior screw was 90 mm and as such I selected and 85 mm screw. I used the cannulated drill to drill the lateral cortex. Inserted the short threads 7.3 mm cannulated screws up to the fracture site and then sequentially advance each one starting with the utmost inferior screw. I tightened these all the way down to bone. They appeared appropriately placed slightly convergent on the true lateral but overall had good strength and appropriate paced along the inferior calcar as well as posterior aspect of the femoral neck. No screws were penetrating the subchondral bone. I did near-far technique with live fluoroscopy and none of the screws appeared to be penetrating the subchondral bone and appropriately placed. I took final AP and lateral radiographs. The wound was thoroughly irrigated. Subcutaneous tissue was closed with interrupted #2-0 Vicryl sutures and the skin with zuhair. Dressing was placed after 10 mL of 0.25% bupivacaine was instilled around the incision site. The skin was cleaned with a wet-to-dry dressing prior to the application of the dressing as well. Patient was taken out of the traction setup. Transferred off the operating table and taken to the postanesthetic care unit in stable condition after having been awakened from general anesthetic. All sponge, needle, and instrument counts were correct. Estimated blood loss: 10 mL. No complications. PLAN: The patient is to be weightbearing as tolerated. Patient will be admitted to the hospital under the hospitalist. Start rivaroxaban 10 mg by mouth once daily postoperative day #1. Discontinue the zuhair postoperative day 14. MTDD
[2019-07-01] MEDS: IRON SUCROSE 200 MG in NS 100 ML IV SCH (15:07)
[2019-07-01] MEDS: ATORVASTATIN 10 MG TAB PO SCH (17:44)
[2019-07-01] MEDS ORDERED: RIVAROXABAN 10 MG TAB (XARELTO) PO SCH (18:00)
[2019-07-01] MEDS: APIXABAN 2.5 MG TAB (ELIQUIS) PO SCH (20:57)
[2019-07-01] MEDS: cefTRIAXone SOD 1 GM in D5W MINI-BAG PLUS 50 ML IV SCH (20:57)
[2019-07-01] MEDS: traZODone 50 MG TAB PO SCH (20:57)
[2019-07-01] MEDS: SENOKOT S TAB PO SCH (20:57)
--- NOTE | 2019-07-01 21:45 | IPN ---
DATE: 07/01/2019 CHIEF COMPLAINT: Postoperative day #1 right hip cannulated screws, open reduction internal fixation for femoral neck fracture. HISTORY OF PRESENT ILLNESS: This 84-year-old man underwent surgery yesterday. He is doing well. No chest pain, shortness of breath, or other symptoms. Pain is settling down nicely in terms of the right hip. No concerns or complaints from him or the nursing staff. PHYSICAL EXAM: On physical exam, he is a well-appearing 84-year-old man. Small dressing is intact, no strike-through. Thigh compartment is soft. Normal sensation in the foot. The foot is warm and well perfused. Good pedal pulses. He is able to wiggle his toes, dorsiflex and plantarflex the foot. ASSESSMENT AND PLAN: This is an 84-year-old man who is postoperative day #1 from right hip pain with screw fixation. He can be weightbearing as tolerated. He will start rivaroxaban 10 mg by mouth once daily for deep vein thrombosis (DVT) prophylaxis. He is being actively managed by the hospitalist service, and I appreciate their intervention greatly.
[2019-07-02] VITALS (10 sets, daily range): BP systolic 138–169; BP diastolic 63–74; O2SAT 95–99
[2019-07-02] MEDS: traMADol 50 MG TAB PO PRN ×3 (00:13→11:34)
[2019-07-02 04:07] LABS: HEMATOCRIT 33.9 % (42.0-52.0); MEAN CORPUSCULAR HGB CONC 32.4 g/dl (32.0-36.5); MEAN CORPUSCULAR VOLUME 95.5 fl (80.0-96.0); PLATELET COUNT, AUTOMATED 198 10^3/uL (150-450); RED BLOOD COUNT 3.55 10^6/uL (4.30-6.10); WHITE BLOOD COUNT 18.3 10^3/uL (4.0-10.0)
[2019-07-02 04:15] LABS: CALCIUM LEVEL 7.6 MG/DL (8.8-10.2); CREATININE FOR GFR 3.43 MG/DL (0.70-1.30); GLOMERULAR FILTRATION RATE 18.4 (>35); POTASSIUM SERUM 5.6 MEQ/L (3.5-5.1)
--- NOTE | 2019-07-02 08:11 | IPN ---
DATE OF SERVICE: 07/01/2019 SUBJECTIVE: The patient was seen and examined at the bedside today morning. Last 24 hour events were noted. The patient was taken to the operating room (OR). He got screws placed in the right hip by orthopedic surgery. IV fluids have been stopped now. The patient started eating a regular diet today morning. There is no significant improvement in the renal function, creatinine is still fluctuating at 3.5. The patient is nonoliguric at this time. There were a lot of clots in his Merida catheter. His Merida needed to be flushed and he is making more urine now. He remains hyperkalemic today. Potassium is 5.7. He was given a dose of Kayexalate yesterday. However, the patient reports that he has not had a bowel movement since last . Apart from a moderate amount of pain in the right hip the patient denies any active complaints. OBJECTIVE: Vital Signs: Temperature is 97 degrees Fahrenheit, blood pressure 149/65, pulse is 64, respiratory rate of 22, saturating 97% on nasal cannula at 2 liters. Intake and Output: Urine output recorded as 1.2 liters yesterday 1.2 liters so far today since overnight. Weight in the bed scale is 125.1 kg. PHYSICAL EXAMINATION: General: The patient is awake, alert, oriented x3, laying in bed, in no apparent distress. Head and Neck Exam: The patient is wearing nasal cannula. Mucous membranes are moist. Neck is supple. There is no jugular venous distention (JVD). Cardiovascular: S1, S2. Regular rate. 2+ edema of the bilateral lower extremities. Respiratory: Chest is clear to auscultation bilaterally. Bilateral equal air entry. No rales. Abdomen is soft, obese. Positive bowel sounds. Nontender. No organomegaly. Genitourinary: He has an indwelling Merida catheter. There are some clots in the Merida tubing and in the bag. Musculoskeletal: 1-2+ edema of the bilateral lower extremities. Decreased range of movement of the right hip. There is a dressing on the right hip from recent surgery. 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 Power is 5/5 in bilateral upper extremities. LAB REVIEW: CBC showed a WBC of 20.5, hemoglobin 11.5, platelets of 199. BMP showed sodium 134, potassium 5.7, chloride 103, bicarb is 20, BUN 82, creatinine is 3.5, calcium 7.6. Iron is 27, TIBC 209, transferrin saturation 12.9, ferritin is 135. IMAGING STUDIES: Ultrasound was done yesterday which showed no acute pathology. No evidence of hydronephrosis. CURRENT INPATIENT MEDICATIONS: The patient's medications were all reviewed by me. IV antibiotics have been stopped. The patient continues to be on IV ceftriaxone. I have started the patient on IV Venofer 200 mg IV daily for iron deficiency anemia. Allopurinol dose has been decreased to 100 mg daily. The patient was started on Zaroxolyn for deep vein thrombosis (DVT) prophylaxis, however, because of renal failure it has been changed to Eliquis 2.5 mg by mouth twice a day. I gave him a dose of Lasix 40 mg IV. The patient was constipated so a dose of Dulcolax suppository 10 mg and MiraLAX packet twice a day has been ordered. ASSESSMENT/PLAN: 1. Acute renal failure superimposed on chronic kidney disease stage III. The patient is nonoliguric at this time. However, there is no significant improvement in the renal function. IV fluids have been stopped. Continue to hold the fluid. There is no urgent need of dialysis at this time. I would closely monitor the patient for any need of renal replacement therapy. 2. Hyperkalemia. It is secondary to acute renal failure. The patient was given a dose of Kayexalate yesterday. However, he has not had a bowel movement. I have given him a bowel regimen and once he starts having bowel movements he would be given a dose of Kayexalate 30 grams by mouth and I have changed his diet to gram potassium diet as well. 3. Hematuria, it is slowly resolving. I have talked to the nursing staff to frequently flush his Merida catheter to prevent clotting. 4. Iron deficiency anemia. The patient has been started on IV Venofer injections. 5. Chronic gout. Allopurinol dose has been decreased to 100 mg daily. 6. Hypertension. Blood pressure is optimized. Continue current dose of Coreg 6.25 mg by mouth twice a day. 7. Hyponatremia. The patient has slight hypervolemia because of IV fluids and I have given him a small dose of Lasix 40 mg IV x1 dose. There is evidence of lower extremity edema on exam as well. 8. Right hip fracture postoperative day #1, status post right hip pinning. Management is as per orthopedic surgery. DVT prophylaxis has been changed to Eliquis because of acute renal failure.
[2019-07-02] MEDS: HumaLOG INSULIN (NovoLOG) PER UNIT SC SCH ×4 (08:12→20:51)
[2019-07-02] MEDS: PARoxetine 10MG TABLET PO SCH (09:44)
[2019-07-02] MEDS: MIRALAX *UNIT DOSE* 17GM PACKET PO SCH (09:44)
[2019-07-02] MEDS: FINASTERIDE 5 MG TAB PO SCH (09:44)
[2019-07-02] MEDS: LEVEMIR (INSULIN DETEMIR) 1 UNITS/0.01ML SC SCH (09:44)
[2019-07-02] MEDS: GABAPENTIN 100 MG CAP PO SCH ×3 (09:45→20:40)
[2019-07-02] MEDS: allopurinoL 100 MG TAB PO SCH (09:45)
[2019-07-02] MEDS: APIXABAN 2.5 MG TAB (ELIQUIS) PO SCH ×2 (09:46→20:40)
[2019-07-02] MEDS: CARVedilol 12.5 MG TAB PO SCH ×2 (09:46→20:41)
[2019-07-02] MEDS: SENOKOT S TAB PO SCH ×2 (09:46→20:40)
[2019-07-02] MEDS ORDERED: FLEET OIL RETENTION ENEMA PR ONE (11:30)
[2019-07-02] MEDS ORDERED: SLF 3 ML SYR IV PRN (11:30)
[2019-07-02] MEDS ORDERED: FUROSEMIDE 40MG/4ML VIAL (J1940) IV ONE (13:00)
[2019-07-02] MEDS: SLF 3 ML SYR IV SCH ×2 (14:00→20:41)
[2019-07-02] MEDS: IRON SUCROSE 200 MG in NS 100 ML IV SCH (14:17)
--- NOTE | 2019-07-02 16:02 | IPN ---
DATE: 07/02/2019 Mr. Green is an 84-year-old male, postoperative day #2 for right hip pinning, followed by orthopedics. Patient was seen and examined this morning during bedside rounds with Dr. Koo. He continues to endorse that he has not had a bowel movement since last week. Has taken all bowel regimen prescribed since yesterday but has not gotten any relief. He continues to endorse right hip pain as well as lower extremity edema. He also endorsed that he does have right knee pain as well, which occurred after the initial fall. There were no other overnight events reported by nursing, and telemetry was negative as well. PHYSICAL EXAMINATION: VITAL SIGNS: Temperature 96.7, pulse 68, respiratory rate 17, blood pressure 169/70, mean arterial pressure (MAP) of 103, pulse oximetry 96% on 1 liter nasal cannula. GENERAL: This is a very pleasant 84-year-old male who does not appear in acute distress. Just appears slightly uncomfortable. Appropriately answering questions, lying in bed. HEENT: Atraumatic, normocephalic. Pupils equal, round, and reactive. Moist mucous membranes. No jugular venous distention (JVD). HEART: S1, S2 sounds are present. Regular rate and rhythm. Continues to have 1+ pitting edema. RESPIRATORY: No audible wheezing, rhonchi, or rales. ABDOMEN: Obese abdomen. No tenderness to palpation. Hyperactive bowel sounds but continues to be soft with no rigidity or rebounding. NEUROLOGIC: No known neurologic deficits noted. LABORATORY DATA: WBC 18.3, hemoglobin 11.0, hematocrit 33.9, platelets 198. Chemistry: Sodium 138, potassium 5.6, chloride 102, carbon dioxide 23, BUN 87, creatinine 3.93, glucose 277. No new imaging. ASSESSMENT AND PLAN: 1. Acute kidney injury superimposed on chronic kidney disease, stage III. BUN and creatinine continue to stay stable at 87/3.43. He has adequate urine output of at least 3 liters in the last 24 hours with a net negative of 1.07 liters. Because he is nonoliguric and does have urine output, it indicates that his kidney function is starting to improve, even though the BUN and creatinine levels are slightly elevated. We will be giving him another dose of Lasix 40 mg times one today and will monitor his kidney function. 2. Hyperkalemia. Potassium continues to persist to be elevated at 5.7 this morning. He has yet to have a bowel movement despite being on MiraLax and stool softener. We recommend a mineral oil enema, which patient is agreeable to, and once he has a bowel movement, we will give another dose of Kayexalate to bring his potassium level down. We also predict that the potassium level should improve with continued urine output. 3. Hematuria. Hemoglobin continues to be stable at 11.0. Merida today shows clear urine with no blood clots or hematuria noted. As of right now appears to have resolved. Will continue to monitor. 4. Right femoral neck fracture, status post hip pinning by orthopedics. Will refer to them for management. Will continue with Eliquis 2.5 mg twice a day for deep vein thrombosis (DVT) prophylaxis versus the Xarelto, which was recommended by orthopedics due to his acute kidney injury. 5. Iron deficiency anemia. He got one dose of Venofer and will resume his home oral supplementation upon discharge. 6. Chronic gout secondary to chronic kidney disease. Continue with allopurinol 100 mg. 7. Diabetes. Fasting glucose continues to be elevated at 277. Will refer to primary team for glycemic control. 8. Hypertension. Will continue with the Coreg at 6.25 mg twice a day. His home isosorbide and amlodipine are on hold due to the fact of his kidney injury. He will be getting another dose of Lasix 40 mg times one today, and he is asymptomatic, so we will continue to monitor his blood pressure. 9. Constipation, possibly drug induced. He is on multiple opioids for his right hip pain status post surgical fixation. He has gotten stool softeners, MiraLax, as well as Kayexalate to help with his hyperkalemia. Because he has yet to have a bowel movement and we need to get his hyperkalemia down, we will be giving a mineral oil enema. Will continue to monitor. Will continue to follow along the patient while he is admitted.
[2019-07-02] MEDS: ATORVASTATIN 10 MG TAB PO SCH (18:07)
[2019-07-02] MEDS: cefTRIAXone SOD 1 GM in D5W MINI-BAG PLUS 50 ML IV SCH (20:40)
[2019-07-02] MEDS: traZODone 50 MG TAB PO SCH (20:40)
[2019-07-03] VITALS (16 sets, daily range): BP systolic 134–176; BP diastolic 64–89; O2SAT 93–100
[2019-07-03 05:23] LABS: HEMATOCRIT 34.5 % (42.0-52.0); HEMOGLOBIN 10.9 g/dl (13.5-17.5); MEAN CORPUSCULAR HEMOGLOBIN 30.4 pg (27.0-33.0); MEAN CORPUSCULAR HGB CONC 31.6 g/dl (32.0-36.5); MEAN CORPUSCULAR VOLUME 96.1 fl (80.0-96.0); PLATELET COUNT, AUTOMATED 184 10^3/uL (150-450); RED BLOOD COUNT 3.59 10^6/uL (4.30-6.10); WHITE BLOOD COUNT 14.3 10^3/uL (4.0-10.0)
[2019-07-03] MEDS: SLF 3 ML SYR IV SCH ×3 (05:34→20:22)
[2019-07-03 05:45] LABS: CALCIUM LEVEL 7.9 MG/DL (8.8-10.2); GLOMERULAR FILTRATION RATE 21.4 (>35); POTASSIUM SERUM 5.4 MEQ/L (3.5-5.1)
--- NOTE | 2019-07-03 07:19 | IPNPDOC ---
Text Note Date of Service The patient was seen on 07/02/19. NOTE Subjective: Patient seen and examined at bedside. No acute overnight events reported. No new medical complaints this morning. Still no bowel movement Objective: Vitals (See below) General: Lying in bed, appears comfortable, AAOx3 HEENT: NC, AT CVS: +S1S2, soft systolic murmur Lungs: Fair air entry b/l, no wheezing, rhonchi or crackles Abdomen: Soft, ND, NT; johnson catheter in place - hematuria noted Extremities: Trace/No pitting edema, - Calf tenderness, chronic venous stasis changes A/P: 84-year-old male with a PMHx of Chronic leukocytosis (follows with Oncology), IDDM2, HTN, ?CHF, DLP, Neuropathy, BPH, who presented as a transfer from [facility] after he had sustained a fall at home on 06/26. Patient presented to the ER with pain and found to have worsening renal function, he was admitted to the hospitalist service. Patient had a Johnson diane ter placed on 06/26 and at that point developed hematuria. Patient remained the hospital and was eventually transferred on 06/28 because of worsening kidney function / hematuria and uncontrolled right hip pain. Upon arrival to [facility] on 06/28, patient had repeat imaging of his hip that was consistent with a fracture of his femur. Orthopedic surgery was: Consultation. Patient's Creatinine was noted to be elevated significantly from his baseline and nephrology was called on consultation would also recommended consultation urology for his hematuria. #Acute renal failure on CKD3 - will receive lasix x 1 today - Johnson catheter continues to put out adequate urine - Renal US noted - Nephrology on consultation; appreciate their input #Hyperkalemia - Nephrology on consultation - still no BM - plan for kayexalate and enema today #Hematuria - likely 2/2 traumatic Johnson insertion - Patient reported significant pain on Johnson insertion - Initial UA completed at [place] was negative; became grossly positive for blood after Johnson insertion - Hemodynamically stable - Hg has remained stable - Urology on consultation - assistance appreciated - urine appears clear today #R hip pain 2/2 R femur neck fracture - 2/2 mechanical fall - Orthopedic surgery has been called on consultation - POD #3 right screw fixation - Patient reports hip pain is controlled with medications - CT hip 06/28: Acute transverse subcapital right femur neck fracture with mild varus and apex anterior angulation but minimal displacement. - COVID19 pre-op test pending - c/w pain control, PT/OT post-operatively #Leukocytosis, Acute on Chronic - possibly 2/2 reactive etiology, possibly 2/2 infectious etiology - ROS negative for any specific source - Initial UA at [place] was reported normal - UA / Urine culture / Blood cultures are pending - CXR 06/28: Chronic-appearing changes. no focal consolidation or effusion. - c/w Ceftriaxone #Constipation - c/w Bowel regimen as above #HTN - Unclear CHF history - Moderately controlled BP; possibly 2/2 pain - c/w coreg, home rx on hold #IDDM2 with Neuropathy - c/w ISS - adding basal insulin - takes very large doses of insulin at home 100u BID - c/w Gabapentin #DLP - c/w Atorvastatin #Gout - c/w Allopurinol - Colchicine on hold #Iron deficiency anemia - Hg remains stable - s/p venofer - c/w Ferrous sulfate #Insomnia / Depression / Anxiety - c/w Paroxetine, Trazodone #BPH - c/w Finasteride #DVT prophylaxis - c/w TEDs/Sequentials (re: Hematuria) VS,Fishbone, I+O VS, Fishbone, I+O Laboratory Tests 07/03/19 04:47 Vital Signs Date Time Temp Pulse Resp B/P (MAP) Pulse Ox O2 Delivery O2 Flow Rate FiO2 07/03/19 04:00 96.2 64 18 145/70 (95) 96 Nasal Cannula 0.5 I&O- Last 24 Hours up to 6 AM 07/03/19 06:00 Intake Total 1440 ml Output Total 2750 ml Balance -1310 ml MIYA DAVILA MD July 03, 2019 07:19
[2019-07-03] MEDS: HumaLOG INSULIN (NovoLOG) PER UNIT SC SCH ×4 (08:30→20:20)
[2019-07-03] MEDS: LEVEMIR (INSULIN DETEMIR) 1 UNITS/0.01ML SC SCH (08:30)
[2019-07-03] MEDS: FINASTERIDE 5 MG TAB PO SCH (08:31)
[2019-07-03] MEDS: CARVedilol 12.5 MG TAB PO SCH ×2 (08:31→20:21)
[2019-07-03] MEDS: GABAPENTIN 100 MG CAP PO SCH ×3 (08:31→20:21)
[2019-07-03] MEDS: APIXABAN 2.5 MG TAB (ELIQUIS) PO SCH ×2 (08:31→20:21)
[2019-07-03] MEDS: allopurinoL 100 MG TAB PO SCH (08:31)
[2019-07-03] MEDS: PARoxetine 10MG TABLET PO SCH (08:31)
[2019-07-03] MEDS: SENOKOT S TAB PO SCH ×2 (08:31→20:21)
[2019-07-03] MEDS: FUROSEMIDE 100MG/10ML VIAL (J1940) IV SCH ×2 (13:26→17:42)
[2019-07-03] MEDS: IRON SUCROSE 200 MG in NS 100 ML IV SCH (14:42)
[2019-07-03] MEDS: ATORVASTATIN 10 MG TAB PO SCH (17:42)
[2019-07-03] MEDS: traMADol 50 MG TAB PO PRN (17:44)
[2019-07-03] MEDS: cefTRIAXone SOD 1 GM in D5W MINI-BAG PLUS 50 ML IV SCH (20:19)
[2019-07-03] MEDS: traZODone 50 MG TAB PO SCH (20:21)
--- NOTE | 2019-07-03 22:23 | IPN ---
DATE: 07/03/2019 Mr. Green was seen and examined this morning during bedside rounds. He does not appear in acute distress, sitting up in his chair after eating breakfast. He states that his hip pain has improved, his right knee pain continues to persist. He currently has a Merida in place and urinates with no problem. There have not been any blood clots or any hematuria noted in the last 48 hours. No other overnight events were reported by nursing or on telemetry. PHYSICAL EXAM: Vital Signs: Temperature 96.5, pulse 71, respirations 18, blood pressure 152/72 (98), pulse oximetry 97% on 0.5 nasal cannula. Intake total 840, output total 2200 mL, a balance of negative 1360 mL with one bowel movement yesterday. General: This is a very pleasant 84-year-old male who does not appear in acute distress, appropriately answering questions. HEENT: Atraumatic, normocephalic. Pupils equal, round and reactive. Moist mucous membranes. No jugular venous distention (JVD). Large neck girth. Cardiovascular: Regular rate and rhythm. He has a faint 1/6 systolic murmur, loudest in the left intercostal space with no radiation to the apex or to the carotids, but no rubs. Lungs: Clear to auscultation bilaterally. No audible wheezing, rhonchi, or rales. Abdomen: Positive bowel sounds in all four quadrants. Obese abdomen. No rigidity, no rebounding. Neurologic: No neurologic deficits noted. Extremities: 2+ edema bilaterally with some excoriation appreciated over the right mireles and on the right knee. LABORATORY DATA: Hematology: WBC 14.3, hemoglobin 10.9, hematocrit 34.5, platelets 184. Chemistries: Sodium 137, potassium 5.4, chloride 103, carbon dioxide 23, anion gap 11, BUN 87, creatinine 3.00, fasting glucose 227. No new imaging. ASSESSMENT AND PLAN: 1. Acute kidney injury superimposed on stage III chronic kidney disease. Creatinine improved today to 3.0. Continues to have adequate urine output. We will increase his Lasix dose; he has been getting 40 mg of Lasix daily, now we will schedule 60 mg today to help with his lower extremity edema and will monitor his kidney function. 2. Hyperkalemia. Patient did have a bowel movement yesterday and today. He has only gotten a total of one Kayexalate dose. The second one that we did order and was not given. His potassium did come down to 5.4. Because we are giving him Lasix twice a day, we do predict that his potassium should improve for his urine output is adequate. We will continue to monitor. I predict in the next 24 hours potassium should get better. 3. Hematuria, resolved. 4. Right femoral neck fracture, status post hip pinning by orthopedics. Continue with Eliquis 2.5 mg twice a day for deep vein thrombosis (DVT) prophylaxis versus Xarelto which was originally recommended due to his acute kidney injury (ANICETO). This is not a long-term medication. This is temporary DVT prophylaxis due to the pinning, so will need to be discontinued per orthopedic recommendations. 5. Iron deficiency anemia. Continue with Venofer. Upon discharge, will continue with oral iron supplementation. 6. Chronic gout secondary to chronic kidney disease. Continue with reduced allopurinol 100 mg. 7. Diabetes. Defer to primary team for glycemic control. 8. Hypertension. Continue with Coreg 6.25 mg twice a day and hold his isosorbide and amlodipine due to his ANICETO, which is currently improving but not back to baseline. He is getting Lasix 60 mg twice a day, which will help with his blood pressure. 9. Constipation, resolved. Possibly drug induced from all his opioids. He does have bowel regimen on board. Will continue as such.
[2019-07-04] VITALS (16 sets, daily range): BP systolic 128–175; BP diastolic 66–80; O2SAT 94–96
[2019-07-04 04:35] LABS: CALCIUM LEVEL 8.4 MG/DL (8.8-10.2); CREATININE FOR GFR 2.51 MG/DL (0.70-1.30); GLOMERULAR FILTRATION RATE 26.3 (>35); POTASSIUM SERUM 4.7 MEQ/L (3.5-5.1)
[2019-07-04 05:15] LABS: HEMATOCRIT 34.1 % (42.0-52.0); MEAN CORPUSCULAR HEMOGLOBIN 30.7 pg (27.0-33.0); MEAN CORPUSCULAR HGB CONC 32.3 g/dl (32.0-36.5); MEAN CORPUSCULAR VOLUME 95.3 fl (80.0-96.0); PLATELET COUNT, AUTOMATED 177 10^3/uL (150-450); RED BLOOD COUNT 3.58 10^6/uL (4.30-6.10)
[2019-07-04] MEDS: SLF 3 ML SYR IV SCH ×2 (06:15→14:01)
[2019-07-04] MEDS: GABAPENTIN 100 MG CAP PO SCH ×2 (08:19→16:20)
[2019-07-04] MEDS: SENOKOT S TAB PO SCH (08:19)
[2019-07-04] MEDS: allopurinoL 100 MG TAB PO SCH (08:19)
[2019-07-04] MEDS: FINASTERIDE 5 MG TAB PO SCH (08:20)
[2019-07-04] MEDS: CARVedilol 12.5 MG TAB PO SCH (08:20)
[2019-07-04] MEDS: APIXABAN 2.5 MG TAB (ELIQUIS) PO SCH (08:20)
[2019-07-04] MEDS: LEVEMIR (INSULIN DETEMIR) 1 UNITS/0.01ML SC SCH (08:21)
[2019-07-04] MEDS: PARoxetine 10MG TABLET PO SCH (08:21)
[2019-07-04] MEDS: HumaLOG INSULIN (NovoLOG) PER UNIT SC SCH ×2 (08:22→11:43)
[2019-07-04] MEDS: FUROSEMIDE 100MG/10ML VIAL (J1940) IV SCH (08:23)
[2019-07-04] MEDS ORDERED: ALLO10TA PO (10:50)
--- NOTE | 2019-07-04 10:56 | DS.PDOC ---
Discharge Summary General Date of Admission June 29, 2019 at 15:03 Date of Discharge 07/04/19 Specialist/Consultants Involve Urology Dr Renae Nephrology Dr. Salazar Ortho Dr Parada Discharge Summary PROCEDURES PERFORMED DURING STAY: right femoral screw fixation ADMITTING DIAGNOSES: 1. right femoral neck fracture DISCHARGE DIAGNOSES: 1. severe critical aortic stenosis 2. 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 ANICETO/CKD 4. hyperkalemia 5. hematuria/traumatic johnson 6. HTN 7. Gout 8. iron deficiency anemia 9. BPH 10. anxiety/depression 11. COVID PCR negative 06/30/19 CHIEF COMPLAINT: ANICETO/CKD, hematuria, right hip pain/fx HOSPITAL COURSE: 84-year-old male with a PMHx of CLL, IDDM2, HTN, ?CHF, DLP, Neuropathy, BPH, who originally presented to an outside facility ([facility]) after he had sustained a fall at home on 06/26. Patient presented to that ER with pain and found to have worsening renal function. Patient had a Johnson catheter placed on 06/26 and at that point developed hematuria. Patient remained the hospital and was eventually transferred to [facility] because of worsening kidney function, hematuria and uncontrolled right hip pain. Upon arrival to [facility] on 06/28, patient had repeat imaging of his hip that was consistent with a fracture of his femur. Orthopedic surgery was consulted, and he underwent right hip screw fixation on 07/01/19. Patient's creatinine was noted to be elevated significantly from his baseline and nephrology was called on consultation would also recommended consultation urology for his hematuria. Urology recommended monitoring urine output, with outpatient follow up. Nephrology addressed his fluid status with diuretic therapy. During his hospital stay he noted shortness of breath with dyspnea on exertion. It was also noted on telemetry that he was having intermittent episodes of 2nd degree AV block. An echocardiogram was obtained, which revealed severe critical aortic stenosis. He was thus transferred to [facility] for further intervention. DISCHARGE MEDICATIONS: Please see below. ALLERGIES: Please see below. PHYSICAL EXAMINATION ON DISCHARGE: Vitals (See below) General: Lying in bed, appears comfortable, AAOx3 HEENT: NC, AT CVS: +S1S2, soft systolic murmur Lungs: Fair air entry b/l, no wheezing, rhonchi or crackles Abdomen: Soft, ND, NT; johnson catheter in place Extremities: Trace/No pitting edema, - Calf tenderness, chronic venous stasis changes LABORATORY DATA: Please see below. PROGNOSIS: Guarded ACTIVITY: [As tolerated]. DIET: NPO pending possible surgical intervention DISCHARGE PLAN: Transfer to [facility] - accepting physician Dr. Lito Lewis DISCHARGE INSTRUCTIONS: 1. Further instructions as per receiving facility DISCHARGE CONDITION: [Stable]. TIME SPENT ON DISCHARGE: 35 minutes. Vital Signs/I&Os Vital Signs Date Time Temp Pulse Resp B/P (MAP) Pulse Ox O2 Delivery O2 Flow Rate FiO2 07/04/19 10:00 96 Room Air 07/04/19 08:20 75 160/80 07/04/19 08:00 96.6 18 07/04/19 00:00 1.0 I&O- Last 24 Hours up to 6 AM 07/04/19 06:00 Intake Total 900 ml Output Total 1600 ml Balance -700 ml Laboratory Data Labs 24H Laboratory Tests 2 07/03/19 12:06: Bedside Glucose (Misc Panel) 346H 07/03/19 17:35: Bedside Glucose (Misc Panel) 254H 07/03/19 20:04: Bedside Glucose (Misc Panel) 272H 07/04/19 03:44: Anion Gap 9, Glomerular Filtration Rate 26.3L, Calcium Level 8.4L 07/04/19 05:03: Nucleated Red Blood Cells % (auto) 0.0 CBC/BMP Laboratory Tests 07/04/19 03:44 07/04/19 05:03 FSBS Laboratory Tests Test 07/03/19 12:06 07/03/19 17:35 07/03/19 20:04 Range/Units Bedside Glucose (Misc Panel) 346 254 272 83-110 MG/DL Microbiology Microbiology 06/29/19 Blood Culture - Preliminary, Resulted No Growth after 72 hours. All specime... 06/29/19 Blood Culture - Preliminary, Resulted No Growth after 72 hours. All specime... Discharge Medications Scheduled Allopurinol (Allopurinol) 100 Mg Tablet, 100 MG PO DAILY Amlodipine Besylate (Amlodipine Besylate) 5 Mg Tab, 5 MG PO DAILY, (Reported) Aspirin (Aspir 81) 81 Mg Tab, 81 MG PO DAILY, (Reported) Atorvastatin Calcium (Atorvastatin Calcium) 10 Mg Tab, 10 MG PO DAILY, (Reported) Betamethasone Dipropionate (Betamethasone Dipropionate) 0.05% Cream..g., 1 APLCT TOP BID, (Reported) apply to affected area(s) Clotrimazole (Lotrimin AF) 30 Gm Cream..g., 1 APLCT TOP TID, (Reported) apply to inguinal regions Docusate Sodium (Dok) 100 Mg Tablet, 100 MG PO BID, (Reported) Ferrous Sulfate (Ferrous Sulfate) 325 Mg Tablet.dr, 325 MG PO DAILY, (Reported) Finasteride (Proscar) 5 Mg Tab, 5 MG PO DAILY, (Reported) Gabapentin (Gabapentin) 100 Mg Cap, 200 MG PO DAILY, (Reported) Insulin Detemir (Levemir) 100 Unit/1 Ml Vial, 100 UNITS SC BID, (Reported) Metolazone (Metolazone) 5 Mg Tab, 5 MG PO ASDIRECTED, (Reported) sunday and sunday Paroxetine HCl (Paroxetine) 10 Mg Tab, 10 MG PO DAILY, (Reported) Potassium Chloride (Potassium Chloride) 20 Meq Tablet.er, 20 MEQ PO DAILY, (Reported) Trazodone HCl (Trazodone HCl) 50 Mg Tab, 50 MG PO QHS, (Reported) Scheduled PRN Hydrocodone/Acetaminophen (Hydrocodone-Acetamin 5-325 mg) 1 Each Tablet, 1 TAB PO Q6H PRN for PAIN, (Reported) started 06/28/19 stop 07/04/19 Allergies Coded Allergies: No Known Allergies (Verified , 08/11/02) MIYA DAVILA MD July 04, 2019 10:56
[2019-07-04] MEDS: traMADol 50 MG TAB PO PRN (11:42)
[2019-07-04] MEDS: MORPHINE 2 MG/ML 1ML VIAL (J2270) IV PRN (16:20)
--- NOTE | 2019-07-04 22:24 | IPN ---
DATE: 07/04/2019 Mr. Green was seen and examined this morning during bedside rounds. He states that he is feeling a little bit better. He has had multiple bowel movements in the last 2 days and he is resting comfortably in bed with no acute problems or complaints today. His echo results from 06/30/2019 were reviewed with the patient that showed he had critical aortic stenosis that warranted transfer for further evaluation with catheterization. The patient was agreeable that he would like to have the valve replaced if it is indicated and is up to a transfer. He really has no complaints today and requested that we refer all this information to his son who was spoken to at length during bedside rounds by me and Dr. Koo. He denies any nausea, vomiting, diarrhea, chest pain, shortness of breath. He endorses his lower extremity edema has improved and his right hip pain continues to improve minus the right knee pain continues to persist. No other overnight events were reported by nursing. Early this morning though, he did get his Lasix dose and did transition from first-degree atrioventricular (AV) block to second-degree AV block but he did not sustain it for he converted back in less than 10 seconds. PHYSICAL EXAMINATION: Vital signs: Temperature 96.6, pulse 74, respirations 18, blood pressure 160/68 (98), pulse oximetry 98% on room air. Intake total 1350, output total 2650 with a balance of negative 1300 mL. He has had one bowel movement. His weight today is 123.5 kg. General: This is a very pleasant, 84-year-old male who does not appear in acute distress, resting comfortably in the bed at a 45 degree angle. HEENT: Atraumatic, normocephalic. Pupils equal, round, and reactive. Large neck girth with no carotid bruits appreciated. Heart: Regular rate and rhythm with a faint 1-2 over 6 systolic murmur with radiation to the carotids but not to the apex. No audible rubs or gallops noted. Lungs: Clear to auscultation bilaterally with persistent bibasilar crackles appreciated. No audible wheezing noted. Abdomen: Obese abdomen with positive bowel sounds in all four quadrants. Soft, nontender, nondistended. Genitourinary: [place] in place. Extremities: Chronic venous stasis bilaterally. Excoriations appreciated over the right knee. 2+ pitting edema bilaterally which is improved but continues to persist. No other skin changes noted. LABORATORIES: WBC 14.0, hemoglobin 11.0, hematocrit 34.1, platelets 177. Chemistry: Sodium 135, potassium 4.7, chloride 102, carbon dioxide 24, anion gap 9, BUN 87, creatinine 2.52, fasting glucose 325, calcium 8.4. Serology: COVID negative. Microbiology: Blood cultures times two negative for growth at 5 days. MEDICATIONS: Only new medication was furosemide 60 mg twice a day IV. ASSESSMENT AND PLAN: 1. Acute kidney injury superimposed with stage III chronic kidney disease. Creatinine improved to 2.5 today. He has been tolerating his 60 mg of Lasix twice a day IV. His edema continues to improve but due to his severe aortic stenosis, they are preload dependent, we will reduce the amount of Lasix to daily to keep him euvolemic upon transfer. Due to problem number 2, patient will probably get contrast for his evaluation with a catheterization and we have educated the patient that his kidney function might worsen due to these interventions and possibly will need short-term dialysis if needed, and he states he is agreeable to that plan. 2. Critical severe aortic stenosis. Echocardiogram on 06/30/2019 shows the patient has critical severe aortic stenosis. He is agreeable to transfer to higher level of care. Hospitalist team called [facility] and they have accepted the patient for further evaluation where he will go get a catheterization. The patient understands the risks and benefits of a valve replacement and what is indicated and he will be transferred to [facility] once a bed is available. 3. Hyperkalemia. His potassium this morning has improved to 4.7 with Lasix. We will reduce his Lasix dose to 60 mg daily and he will have this monitored upon discharge to [facility]. 4. Hematuria, resolved. 5. Right femoral neck fracture status post pinning by orthopaedics. He will continue with the Eliquis 2.5 mg twice a day for deep venous thrombosis (DVT) prophylaxis versus Xarelto which was originally recommended due to his acute kidney injury (ANICETO). This is not a long-term medication, this is a temporary deep venous thrombosis (DVT) prophylaxis due to his orthopaedic pinning and will need to be discontinued per orthopaedics recommendations. 6. Iron deficiency anemia. Will need to continue with supplementation upon discharge. 7. Chronic gout secondary to chronic kidney disease. We did reduce his home allopurinol to 100 mg. Upon discharge from the hospital at [facility], he can return to his reduced dose if his gout symptoms are continuing to be controlled. 8. Diabetes. 9. Hypertension. Continue with his Coreg 6.25 mg twice a day. We have held his home isosorbide and amlodipine due to his acute kidney injury (ANICETO) which is improving but not back to baseline. This will be further adjusted by [facility] once there. My faculty preceptor for this patient encounter was physically present during the encounter and was fully available. All aspects of the patient interview, examination, medical decision making process, and medical care plan development were reviewed and approved by the faculty preceptor. The faculty preceptor is aware and concurs with the plan as stated in the body of this note and will attest to such by his cosignature.
[2019-07-05] MEDS ORDERED: FUROSEMIDE 100MG/10ML VIAL (J1940) IV SCH (09:00)
== END 2019-07-04 16:36 | disposition short-term general hospital (02) | DRG 481 ==
LOC: M PCU 15:03
PROVIDERS: ADMIT Internal Medicine; ATTEND Internal Medicine
PROC: 0QS604Z Reposition Right Upper Femur with Internal Fixation Device, Open Approach (ICD-10-PCS; principal; 2019-06-30 10:37)
DX: S72.001A Fracture of unspecified part of neck of right femur, initial encounter for closed fracture (principal); N17.9 Acute kidney failure, unspecified; Q25.1 Coarctation of aorta; I13.0 Hypertensive heart and chronic kidney disease with heart failure and stage 1 through stage 4 chronic kidney disease, or unspecified chronic kidney disease; E87.1 Hypo-osmolality and hyponatremia; N18.3 Chronic kidney disease, stage 3 (moderate); I50.9 Heart failure, unspecified; R31.0 Gross hematuria; M10.30 Gout due to renal impairment, unspecified site; F41.9 Anxiety disorder, unspecified; F32.9 Major depressive disorder, single episode, unspecified; D50.9 Iron deficiency anemia, unspecified; N40.0 Benign prostatic hyperplasia without lower urinary tract symptoms; E87.5 Hyperkalemia; I35.0 Nonrheumatic aortic (valve) stenosis; I44.1 Atrioventricular block, second degree; Z79.899 Other long term (current) drug therapy; Z79.82 Long term (current) use of aspirin; Z79.4 Long term (current) use of insulin; F17.210 Nicotine dependence, cigarettes, uncomplicated; D72.829 Elevated white blood cell count, unspecified; E11.51 Type 2 diabetes mellitus with diabetic peripheral angiopathy without gangrene; E78.5 Hyperlipidemia, unspecified; G47.00 Insomnia, unspecified; K59.00 Constipation, unspecified; W18.30XA Fall on same level, unspecified, initial encounter; Y92.009 Unspecified place in unspecified non-institutional (private) residence as the place of occurrence of the external cause